=== PATIENT | male | born 1980 | race Caucasian/White ===

== ENCOUNTER → 2017-02-28 | Outpatient (POV) | payer BC, SELFPAY | PROVIDERS: Family Provider Orthopaedic Surgery; PCP Orthopaedic Surgery; Visit Provider Specialist | DX: G56.03 Carpal tunnel syndrome, bilateral upper limbs (principal) | CPT/HCPCS: 95886; 95910 ==

== ENCOUNTER → 2018-05-04 12:38 | Outpatient (CLI) | payer BC, SELFPAY ==
--- NOTE | 2018-05-04 12:47 | XR_ITS ---
XR knee LT 3V Ordering Physician: Liliana Burk Patient Age: 37 years: Male HISTORY: ITS.REASON: LT KNEE PAIN TECHNIQUE: 3 views left knee COMPARISON :. None FINDINGS Left knee intact. No fracture nor lesion Joint spaces fairly well-maintained.. Only borderline narrowing on this nonweightbearing film . Only Upper normal to scant increased joint fluid suprapatella bursa suggested on today's lateral film. No prominent joint effusion IMPRESSION: . Osseous structures left knee intact.. Upper normal slight increased joint fluid suprapatella bursa
== END ==
PROVIDERS: PCP Nurse Practitioner Family; Visit Provider Nurse Practitioner Family
DX: M25.562 Pain in left knee (principal); M25.462 Effusion, left knee
CPT/HCPCS: 73562

== ENCOUNTER → 2020-01-01 09:36 | Outpatient (CLI) | payer BC, SELFPAY ==
--- NOTE | 2020-01-01 09:42 | XR_ITS ---
PROCEDURE: XR KNEE RT 4V CLINICAL INDICATION: right knee pain COMPARISON: CR [id number] XR knee LT 3V from 05/04/2018 FINDINGS: No fracture or dislocation. No lytic or blastic change. There is normal mineralization. There is slight decrease in the joint space medially which could be due to early osteoarthritic change. Small well-circumscribed calcific density is present along the medial aspect of patella. Other findings:None. IMPRESSION: No acute finding. Slight decrease in the medial joint space which could be related to early osteoarthritic change. Dictated by: Atif Hastings MD 01/01/2020 13:57 Atif Hastings MD in [place] 01/01/2020 13:57
--- NOTE | 2020-01-01 09:42 | XR_ITS ---
PROCEDURE: XR KNEE LT 4V CLINICAL INDICATION: left knee pain COMPARISON: CR [id number] XR knee LT 3V from 05/04/2018 FINDINGS: No fracture or dislocation. No lytic or blastic change. There is normal mineralization. The joint spaces are well-preserved. No significant degenerative/arthritic changes. No erosive changes evident. Other findings:None. IMPRESSION: No acute findings. Dictated by: Atif Hastings MD 01/01/2020 14:01 Atif Hastings MD in [place] 01/01/2020 14:01
== END ==
PROVIDERS: PCP Nurse Practitioner Family; Visit Provider Orthopaedic Surgery
DX: M25.562 Pain in left knee (principal); M25.561 Pain in right knee
CPT/HCPCS: 73564

== ENCOUNTER → 2020-01-04 15:20 | Outpatient (CLI) | payer BC, SELFPAY ==
--- NOTE | 2020-01-04 15:20 | MR_ITS ---
PROCEDURE: MR KNEE LT WO CON CLINICAL INDICATION: evaluate for a meniscal tear Chronic left anterior knee pain COMPARISON: CR XR KNEE LT 4V from 01/01/2020 TECHNIQUE: Routine multiplanar multi echo sequences are performed without gadolinium enhancement. FINDINGS: The cruciate ligaments, collateral ligaments, patellar tendon, and quadriceps tendon are intact. No obvious meniscal tear. There is minimal nonspecific thinning of the patellar cartilage but with unremarkable signal intensity. Unremarkable bone marrow signal intensity. Trace amount of fluid in the suprapatellar region laterally. Unremarkable bone marrow signal intensity. IMPRESSION: 1. No internal derangement. 2. Minimal thinning of the patellar cartilage with trace amount of fluid in the lateral patellar region. Dictated by: Atif Hastings MD 01/06/2020 07:34 Atif Hastings MD in [place] 01/06/2020 07:34
== END ==
PROVIDERS: PCP Nurse Practitioner Family; Visit Provider Orthopaedic Surgery
DX: M25.562 Pain in left knee (principal)
CPT/HCPCS: 73721

== ENCOUNTER 2020-09-21 16:26 | Emergency (ER) | payer BC, SELFPAY ==
[2020-09-21 16:50] VITALS: BP 152/98; PULSE 81; RESP 20; TEMP 36.8; O2SAT 96; BMI 29.2
--- NOTE | 2020-09-21 17:36 | HMH.EDUTC ---
[facility] Disposition Clinical Impression: Tendonitis Disposition: Home, Self-Care Condition on Discharge: Good Instructions: Tendonitis (Alternative Therapy), DI for Tendinitis, Prednisone, Naproxen Additional Instructions: Wear brace as instructed *RICE, Rest the extremity, Ice 15-20 minutes 3-4 times daily,may alternate heat and ice to get relief, Elevate the extremity when at rest Take medications as prescribed Follow up with Family Doctor if no improvement or any worsening of symptoms Prescriptions: Naproxen [Naproxen 500mg tab] 500 mg PO BID PRN #20 tab PRN Reason: Moderate Pain Transmission Status: Received by [facility] predniSONE [Prednisone 5mg Tab Dose-Pack] 5 mg PO UD DOSE PK 6 Days #21 pack Transmission Status: Received by [facility] Referrals: Liliana Burk APRN [Primary Care Provider] - As needed Forms: Work/School Release Medical Decision Making - Rasta Inquiry Pt receiving controlled substance: No Rasta was queried for this patient: No Vital Signs: 09/21/20 16:50 09/21/20 17:50 Temperature 98.3 F 98.3 F Temperature Source Oral Pulse Rate 81 Pulse Rate [Right Brachial] 81 Respiratory Rate 20 20 Blood Pressure 152/98 H Blood Pressure [Right Arm] 152/98 H Blood Pressure Mean [Right Arm] 116 Blood Pressure Source [Right Arm] Automatic Cuff Blood Pressure Position [Right Arm] Sitting 02 Sat by Pulse Oximetry 96 Oxygen Delivery Method Room Air Orders (Tests/Meds): ED MEDICATIONS Discontinued Medications Generic Name Dose Route Start Last Admin Trade Name Freq PRN Reason Stop Dose Admin Ketorolac Tromethamine 60 mg 09/21/20 17:42 09/21/20 17:50 Ketorolac 60mg/2ml Vial IM 09/21/20 17:43 60 mg ONCE ONE Administration Methylprednisolone Sodium Succinate 125 mg 09/21/20 17:42 09/21/20 17:50 Methylprednisolone Sod Succ 125mg Vial IM 09/21/20 17:43 125 mg ONCE ONE Administration [facility] HPI - General Stated complaint: pain in R Wrist Time Seen by Provider: 09/21/20 17:36 Mode of Arrival: Ambulatory Source of Information: Patient Limitations: No Limitations Description of Symptoms (Recalled from Triage Doc. by RN): PATIENT C/O RIGHT WRIST PAIN. 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 States that a couple days ago at work he felt the tightness start and felt like it was getting stiff like he did last time States that he started wearing his brace hoping that would help but it didnt so he came in States that he usually gets some steriods and that helps - Related Data Home Medications Medication Instructions Recorded Confirmed lorazepam 1 mg tablet 1 mg PO Q8H PRN 03/30/17 01/16/20 ranitidine HCl 150 mg capsule 150 mg PO QHS 03/30/17 01/16/20 Previous Rx's Medication Instructions Recorded Naproxen [Naproxen 500mg tab] 500 mg PO BID PRN #20 tab 09/21/20 predniSONE [Prednisone 5mg Tab 5 mg PO UD DOSE PK 6 Days #21 pack 09/21/20 Dose-Pack] Allergies Allergy/AdvReac Type Severity Reaction Status Date / Time No Known Drug Allergies Allergy Unknown Verified 01/16/20 09:59 - Worker's Comp Is this a Worker's Comp case?: No [facility] History - Hepatitis A Screen Drug use history?: No High risk sexual behaviors?: No History of sexually transmitted infection?: No Currently employed?: No Childcare worker?: No Do you have indoor plumbing?: Yes Do you have electricity?: Yes Attestation statement:: This patient has been screened for Hepatitis A risk
[2020-09-21 17:50] VITALS: BP 152/98; PULSE 81; RESP 20; TEMP 36.8; O2SAT 96
== END 2020-09-21 18:00 | disposition home or self-care (01) ==
PROVIDERS: Emergency Provider Physician Assistant; PCP Nurse Practitioner Family
DX: M65.831 Other synovitis and tenosynovitis, right forearm (principal); F41.8 Other specified anxiety disorders
CPT/HCPCS: 96372; 99202; G0463

== ENCOUNTER 2020-12-23 13:13 | Emergency (ER) | payer BC, SELFPAY ==
[2020-12-23 13:17] VITALS: BP 136/84; PULSE 86; RESP 16; TEMP 36.4; O2SAT 98; BMI 29.8
--- NOTE | 2020-12-23 13:48 | HMH.EDUTC ---
[facility] Disposition Clinical Impression: Canker sore Pharyngitis Qualifiers: Pharyngitis/tonsillitis etiology: unspecified etiology Qualified Code(s): J02.9 - Acute pharyngitis, unspecified Disposition: Home, Self-Care Condition on Discharge: Good Instructions: Aphthous Ulcers, DI for Aphthous Ulcers (Canker Sores), DI for Wrist Pain, Thrush-Adult Additional Instructions: *Monitor Temp, Over the counter Motrin or Tylenol as directed/as needed Tylenol every 4 hours and Motrin every 6 hours (as long as your family doctor has told you that you can take it) for fever or pain. and straight to ER if unable to lower temp less than 101.0 after medication given *Warm salt water gargles may help to soothe the throat *Throat Lozenges *Warm fluids like tea with honey may help to soothe the throat *Sleep elevated *Humidifier/Vaporizer Milk of Magnesium placed on ulcers on tongue may help with pain and speed healing Swish and spit nystatin solutions as prescribed Follow up with your Family Doctor for further evaluation Follow up IMMEDIATELY for new or worsening symptoms or no Noticeable improvement over the next 48-72 hours. 911 for difficulty breathing or swallowing Prescriptions: Nystatin [Nystatin Susp 500,000 Units/5mL Udc] 6 ml PO QID 10 Days #240 ml Transmission Status: Received by [facility] Cefdinir [Omnicef 300mg Capsule] 300 mg PO BID #20 cap Transmission Status: Received by [facility] Referrals: Liliana Burk APRN [Primary Care Provider] - As needed Time of Disposition: 14:02 Medical Decision Making - Rasta Inquiry Pt receiving controlled substance: No Rasta was queried for this patient: No Vital Signs: 12/23/20 13:17 12/23/20 14:06 Temperature 97.6 F 97.6 F Temperature Source Oral Pulse Rate 86 Pulse Rate [Left] 86 Respiratory Rate 16 16 Blood Pressure 136/84 Blood Pressure [Right Arm] 136/84 Blood Pressure Mean [Right Arm] 101 02 Sat by Pulse Oximetry 98 Medical Decision Narrative: Discussed xray of wrist and patient declined states that he just wanted to see if we had a different splint for his wrist [facility] HPI - General Stated complaint: loss of appetite Time Seen by Provider: 12/23/20 13:48 Mode of Arrival: Ambulatory Source of Information: Patient Limitations: No Limitations Description of Symptoms (Recalled from Triage Doc. by RN): pt c/o not being able to eat. pt presents with what looks to be an ulcer on the R side of his tongue. pt states he has thrush frequently. pt also c/o chronic wrist pain. HEENT Symptoms (Recalled from RN notes): Yes (swollen painful tongue. with what appears to be an ulcer) Resp Symptoms (Recalled from RN notes): No Skin Symptoms (Recalled from RN notes): No MS Symptoms (Recalled from RN notes): Yes (chronic R wrist pain) Functional Status (Recalled from RN notes): na - History of Present Illness Provider Complaint: Patient states that he sometimes gets a ulcer like lesion on his tongue and has to get nystatin and antibiotics States that it has been getting worse for the last couple of days and has his throat sore and hurting States that also he has chronic pain in his right wrist from Carpal tunnel and he wanted to see about getting a new brace - Related Data Home Medications Medication Instructions Recorded Confirmed lorazepam 1 mg tablet 1 mg PO Q8H PRN 03/30/17 01/16/20 ranitidine HCl 150 mg capsule 150 mg PO QHS 03/30/17 01/16/20 Previous Rx's Medication Instructions Recorded Naproxen [Naproxen 500mg tab] 500 mg PO BID PRN #20 tab 09/21/20 predniSONE [Prednisone 5mg Tab 5 mg PO UD DOSE PK 6 Days #21 pack 09/21/20 Dose-Pack] Cefdinir [Omnicef 300mg Capsule] 300 mg PO BID #20 cap 12/23/20 Nystatin [Nystatin Susp 500,000 6 ml PO QID 10 Days #240 ml 12/23/20 Units/5mL Udc] Allergies Allergy/AdvReac Type Severity Reaction Status Date / Time No Known Drug Allergies Allergy Unknown Verified 01/16/20 09:59
[2020-12-23 14:06] VITALS: BP 136/84; PULSE 86; RESP 16; TEMP 36.4
== END 2020-12-23 14:08 | disposition home or self-care (01) ==
PROVIDERS: Emergency Provider Nurse Practitioner; PCP Nurse Practitioner Family
DX: K12.0 Recurrent oral aphthae (principal); J02.9 Acute pharyngitis, unspecified; F41.8 Other specified anxiety disorders; G56.01 Carpal tunnel syndrome, right upper limb
CPT/HCPCS: 29125; 99202; G0463

== ENCOUNTER → 2022-04-15 11:57 | Outpatient (CLI) | payer BC, SELFPAY | PROVIDERS: PCP Nurse Practitioner Family; Visit Provider Nurse Practitioner Family | DX: G47.33 Obstructive sleep apnea (adult) (pediatric) (principal); G47.00 Insomnia, unspecified; G47.8 Other sleep disorders; R06.83 Snoring | CPT/HCPCS: G0399 ==

== ENCOUNTER → 2022-05-13 08:21 | Outpatient (CLI) | payer BC, SELFPAY ==
--- NOTE | 2022-05-13 08:23 | US_ITS ---
FINAL REPORT TECHNIQUE: Sonographic images of the right upper quadrant were obtained. CLINICAL HISTORY: RUQ PAIN FINDINGS: Sonographic images of the right upper quadrant were obtained in the longitudinal and transverse planes. PANCREAS: Unremarkable. LIVER: The liver has increased echogenicity consistent mild fatty infiltration. No focal hepatic lesion. No intrahepatic biliary ductal dilatation. GALLBLADDER: There are several echogenic foci along the wall of the gallbladder that do not shadow and are most consistent with gallbladder polyps. No gallstones. No gallbladder wall thickening or pericholecystic fluid. COMMON DUCT: 4 mm. Normal for age. RIGHT KIDNEY: The right kidney measures 10.6 cm. There is no hydronephrosis, mass, or stone. FREE FLUID: None. IMPRESSION: 1. Gallbladder polyps. 2. Mild fatty infiltrated liver. Reviewed, Interpreted and Dictated by Genny Sky MD Transcribed by Kaye Porras Authenticated and [facility]
== END ==
PROVIDERS: PCP Nurse Practitioner Family; Visit Provider Nurse Practitioner Family
DX: R10.11 Right upper quadrant pain (principal)
CPT/HCPCS: 76705

== ENCOUNTER 2022-07-16 12:03 | Day surgery (SDC) | payer BC, SELFPAY ==
[2022-07-14 14:28] VITALS: BMI 29.8
[2022-07-16 12:17] VITALS: BP 128/84; PULSE 77; RESP 18; TEMP 36.3; O2SAT 96
--- NOTE | 2022-07-16 12:30 | EXP.ANES.CKL ---
[facility] Disclaimer: The information contained in this section may have been updated after the patient was seen, as this information can be updated by other users. Medical History Allergies Anxiety History of COVID-19 Ringing in ears Scoliosis Sleep apnea Surgical History Hx of carpal tunnel repair Family History Brother CHF (congestive heart failure) Social History Smoking Status: Current some day smoker tobacco type: cigarettes and smokeless tobacco alcohol intake: former counseling provided: other substance use type: denies use current occupational status: employed Travel in the last 8 weeks: None household members: children housing: house marital status: [facility] Anesthesia Checklist Patient Identification Patient Identification: Arm Band and Verbal (Name & ) Structural Data Admitted From: Home Planned Operative Procedure/s: EGD Consent for Planned Operative Procedure(s) Verified: Yes NPO Status Verified Time NPO: 00:00 Airway Assessment C-Spine Mobility Assessed: Yes TMJ Mobility Assessed: Yes Dentition: Good Dentition Neurological Assessment Level of Consciousness: Awake Hx Seizures: No Numbness or tingling in extremities: No Anesthesia Plan Anesthesia Risk discussed: Yes Anesthesia Plan: Verified ASA Class: II Anesthesia Type: MAC
[2022-07-16 13:22] VITALS: O2SAT 96
--- NOTE | 2022-07-16 13:41 | HMH.SCOPE ---
Procedure: Date: 07/16/22 Patient Date of :: 1980 Procedure Performed:: Esophagogastroduodenoscopy with biopsies Indications:: Patient is a 41-year-old from [place] originally referred by Fodr Prabhakar for gallbladder problems .? He was seen in the office on 06/15/2022. Patient states that he has lots of indigestion .? He states that this has been going on a good long while but seems to be worse since March or April of this year and subsequently he states I am done .? He has been in the past taking [id number] Tums and has been switched to omeprazole.? He subsequently has quit taking the omeprazole and is just taking a lot of Tums. He describes his symptoms as involving a wide constellation of symptoms consistent with waterbrash, substernal burning, associated nausea.? It seems to be sometimes worse when eating and sometimes not worse when eating.? He states I have had reflux my entire life. ? He states that he has come to believe that it is normal to vomit after every meal.? Patient does describe a significant gag reflex.? He states his symptoms are improved somewhat when he does not drink as much [place].? He has never had previous endoscopy.? He underwent gallbladder ultrasound on 05/13/2022 which revealed several echogenic foci along the wall of the gallbladder which do not shadow which are consistent with gallbladder polyps.? No gallbladder wall thickening or pericholecystic fluid.? He has findings consistent with mild fatty infiltrated liver. Although his gallbladder ultrasound reveals polyps and he may have some degree of gallbladder disease his symptoms seem to be more consistent with reflux and an upper GI etiology.? Therefore prior to proceeding with definite cholecystectomy I recommended upper endoscopy.? Performing Provider:: Jose Meier MD Referring Provider:: Sondra Prabhakar Sedation:: MAC sedation Procedure:: Patient history was obtained and appropriate physical examination was performed. Patient's medications and allergies were reviewed. Informed consent was obtained after explaining the benefits, alternatives, and risks of the procedure including, but not limited to, bleeding, perforation, missed lesions, and adverse reaction to anesthesia medications. Patient was transported to endoscopy procedure room. Patient was connected to monitoring devices. Throughout the procedure the patient's blood pressure, pulse, and oxygen saturations were monitored continuously. Patient identification and planned procedure were verified by the staff. Patient was positioned in lateral decubitus position. After adequate intravenous sedation Olympus endoscope was inserted via the oropharynx. Overall esophagus appeared unremarkable. Gastroesophageal junction was encountered at approximately 43 cm from the incisors. Stomach was cannulated and insufflated. Retroflexion revealed possible submucosal lesion at the gastric cardia. Endoscope was advanced through the pylorus. Within the duodenal bulb there were findings of some nonerosive duodenitis. Distal duodenum appeared unremarkable. Duodenal bulb biopsies were obtained. Biopsies were obtained of the gastric antrum. Endoscope was withdrawn into the distal esophagus. Multiple biopsies were obtained of the presumed lesion at the gastric cardia in the same location to hopefully obtain some submucosal tissue. Biopsies were obtained of the gastroesophageal junction and a couple of distal esophageal biopsies were obtained. Stomach was desufflated and the endoscope was withdrawn. Findings:: Gastroesophageal junction at 42 cm Probable submucosal lesion at the gastric cardia Mild gastropathy Nonerosive duodenitis within the bulb Recommendations:: I will follow-up on the histopathology and biopsies and proceed appropriately. If the biopsies of the possible submucosal lesion at the gastric cardia are inconclusive may require referral to gastroenterology for possible endos
[2022-07-16 13:42] VITALS: BP 111/71; PULSE 77; RESP 14; O2SAT 93
[2022-07-16 13:52] VITALS: BP 112/68; PULSE 62; RESP 14; O2SAT 98
--- NOTE | 2022-07-16 13:52 | EXP.GEN.HP ---
HPI HPI HPI: Patient is a 41-year-old from [place] originally referred by Fodr Prabhakar for gallbladder problems .? He was seen in the office on 06/15/2022.? Patient states that he has lots of indigestion .? He states that this has been going on a good long while but seems to be worse since March or April of this year and subsequently he states I am done .? He has been in the past taking [id number] Tums and has been switched to omeprazole.? He subsequently has quit taking the omeprazole and is just taking a lot of Tums.? He describes his symptoms as involving a wide constellation of symptoms consistent with waterbrash, substernal burning, associated nausea.? It seems to be sometimes worse when eating and sometimes not worse when eating.? He states I have had reflux my entire life. ? He states that he has come to believe that it is normal to vomit after every meal.? Patient does describe a significant gag reflex.? He states his symptoms are improved somewhat when he does not drink as much [place].? He has never had previous endoscopy.? He underwent gallbladder ultrasound on 05/13/2022 which revealed several echogenic foci along the wall of the gallbladder which do not shadow which are consistent with gallbladder polyps.? No gallbladder wall thickening or pericholecystic fluid.? He has findings consistent with mild fatty infiltrated liver.? Although his gallbladder ultrasound reveals polyps and he may have some degree of gallbladder disease his symptoms seem to be more consistent with reflux and an upper GI etiology.? Therefore prior to proceeding with definite cholecystectomy I recommended upper endoscopy.? [facility] Disclaimer: The information contained in this section may have been updated after the patient was seen, as this information can be updated by other users. Medical History Allergies Anxiety History of COVID-19 Ringing in ears Scoliosis Sleep apnea Surgical History Hx of carpal tunnel repair Family History Brother CHF (congestive heart failure) Social History Smoking Status: Current some day smoker tobacco type: cigarettes and smokeless tobacco alcohol intake: former counseling provided: other substance use type: denies use current occupational status: employed Travel in the last 8 weeks: None household members: children housing: house marital status: Meds Home Medications and Allergies Home Medications Medication Instructions Recorded Confirmed Type No Known Home Medications 07/14/22 07/14/22 History New Prescriptions to Start Prescriptions: Allergies Allergy/AdvReac Type Severity Reaction Status Date / Time No Known Drug Allergies Allergy Unknown Verified 07/14/22 14:29 Exam Data for Last 24 hours Vital signs and Labs for Last 24 Hours: Temp Pulse Resp BP Pulse Ox 97.3 F L 77 14 111/71 93 L 07/16/22 12:17 07/16/22 13:42 07/16/22 13:42 07/16/22 13:42 07/16/22 13:42 I & O for Last 24 hours: Intake & Output 07/14/22 07/15/22 07/16/22 07/17/22 11:59 11:59 11:59 11:59 Weight 219 lb 15.988 oz Constitutional Constitutional: no acute distress *Routine HEENT Exam Head: Present normocephalic Eye: Present EOMI and PERRL ENT: Present mucous membranes moist *Routine Neck Exam Neck: Present supple; Absent lymphadenopathy *Routine Respiratory Exam Respiratory: Present CTA bilaterally *Routine Cardiovascular Exam Cardiovascular: Present RRR *Routine Abdominal Exam Abdominal: Present soft and normoactive bowel sounds; Absent tenderness *Routine Rectal Exam Rectal:: deferred *Routine Genitalia Exam Genitalia:: deferred *Routine Extremities Exam Extremities: Absent cyanosis, clubbing or edema *Routine Skin E
[2022-07-16 14:02] VITALS: BP 105/66; PULSE 61; RESP 14; O2SAT 98
[2022-07-16 14:12] VITALS: BP 109/70; PULSE 83; RESP 16; O2SAT 98
== END 2022-07-16 14:12 | disposition home or self-care (01) ==
PROVIDERS: PCP Nurse Practitioner Family; Visit Provider Surgery
PROC: 0DJ08ZZ Inspection of Upper Intestinal Tract, Via Natural or Artificial Opening Endoscopic (ICD-10-PCS; CPT 43235; principal; 2022-07-16 13:30)
DX: K21.9 Gastro-esophageal reflux disease without esophagitis (principal); K29.80 Duodenitis without bleeding; Z72.0 Tobacco use
CPT/HCPCS: 43239

== ENCOUNTER → 2022-08-05 10:28 | Outpatient (CLI) | payer BC, SELFPAY ==
[2022-08-05 11:01] LABS: Basophils # 0.1 K/mm3 (0-0.2); Basophils % 0.8 % (0.1-2.0); Eosinophils # 0.4 K/mm3 (0.0-0.4); Eosinophils % 4.2 % (0.1-12.0); Hematocrit 51.9 % (42.0-52.0); Hemoglobin 17.4 g/dL (14.1-18.0); Lymphocytes # 2.5 K/mm3 (0.7-4.5); Lymphocytes % 30.4 % (10-50); Mean Corpuscular HGB Conc 33.5 g/dL (31.8-35.4); Mean Corpuscular Hemoglobin 31.2 pg (27.0-31.2); Mean Corpuscular Volume 93.1 fl (80-94); Mean Platelet Volume 8.4 fl (7.4-10.4); Monocytes # 0.4 K/mm3 (0.1-1.0); Monocytes % 4.4 % (1.7-9.3); Neutrophils % 60.1 % (37.0-80.0); Platelet Count 255 K/mm3 (142-424); Red Blood Count 5.57 M/mm3 (4.60-6.20); Red Cell Distribution Width 13.9 % (11.5-17.5); White Blood Count 8.3 K/mm3 (4.8-10.8)
[2022-08-05 11:13] LABS: INR 0.95 (0.9-1.1); Prothrombin Time 10.3 seconds (10.1-12.5)
[2022-08-05 11:28] LABS: Chloride 96 mmol/L (98-107)
[2022-08-05 11:29] LABS: Potassium 4.7 mmoL/L (3.5-5.1); Sodium 140 mmol/L (136-145)
[2022-08-05 11:31] LABS: Alanine Aminotransferase 32 U/L (12-78); Alkaline Phosphatase 128 U/L (38-126); Amylase 90 U/L (30-110); Anion Gap 16.7 mEq/L (5-15); Aspartate Amino Transferase 29 U/L (17-59); Bilirubin,Total 0.3 mg/dl (0.2-1.3); Blood Urea Nitrogen 6 mg/dl (9-20); Carbon Dioxide 32 mmol/L (22.0-30.0); Estimated Glomerular Filt Rate 92 ml/min (>60); GFR (African American) 111 ML/MIN (>60)
[2022-08-05 11:32] LABS: Albumin Level 4.4 g/dl (3.5-5.0); Albumin/Globulin Ratio 1.5 (1.1-1.8); Calcium 9.5 mg/dl (8.4-10.2); Glucose 133 mg/dl (74-100); Lipase 425 U/L (23-300); Total Protein,Serum 7.4 g/dl (6.3-8.2)
--- NOTE | 2022-08-05 12:39 | CT_ITS ---
FINAL REPORT TECHNIQUE: Oral and IV contrast enhanced exam obtained of the abdomen and pelvis. This study was performed with techniques to keep radiation doses as low as reasonably achievable, (ALARA). Individualized dose reduction techniques using automated exposure control or adjustment of mA and/or kV according to the patient's size were employed. CLINICAL HISTORY: epigastric abd pain, nausea, vomiting COMPARISON: None FINDINGS: Abdomen: No acute density is seen within the lung bases. The gallbladder is unremarkable. Solid abdominal organs are unremarkable. No bowel obstruction is present. There is no free air. No fluid collection is seen. There is no adenopathy. Tiny bilateral inguinal hernias containing fat. Pelvis: The appendix is normal. No bowel wall thickening is present. There is no free fluid. No pelvic mass is seen. IMPRESSION: Unremarkable exam Reviewed, Interpreted and Dictated by Pete Gonzalez MD Transcribed by Stefania Park Authenticated and [facility]
== END ==
PROVIDERS: PCP Nurse Practitioner Family; Visit Provider Surgery
DX: R10.9 Unspecified abdominal pain (principal)
CPT/HCPCS: 36415; 74177; 80053; 82150; 83690; 85025; 85610; Q9967

== ENCOUNTER 2022-11-05 19:17 | Emergency (ER) | payer BC, SELFPAY ==
[2022-11-05 19:25] VITALS: BP 149/90; PULSE 77; RESP 20; TEMP 36.6; O2SAT 95; BMI 29.8
[2022-11-05 20:06] VITALS: BP 149/90; PULSE 77; RESP 20; TEMP 36.6; O2SAT 95
--- NOTE | 2022-11-05 20:06 | EXP.UTC ---
Discharge Plan Disposition Patient Disposition: Home, Self-Care Condition: Good Prescriptions Prescriptions: New mupirocin 2 % ointment 1 applic topical TID Qty: 22 0RF No Action pantoprazole 40 mg tablet,delayed release (DR/EC) 40 mg PO DAILY buspirone 10 mg tablet 10 mg PO DAILY hydroxyzine HCl 25 mg tablet 25 mg PO DAILY Referrals Follow up/Referrals: Ford Prabhakar APRN [Primary Care Provider] - See instructions Clinical Impressions Clinical Impression: Bites and stings, insect Qualifiers: Encounter type: initial encounter Qualified Code(s): W57.XXXA - Bitten or stung by nonvenomous insect and other nonvenomous arthropods, initial encounter Instructions Patient Instructions: How to Care for an Insect Bite or Sting, DI for Insect Bites and Stings Discharge ED Provider: Amelie Abreu [facility] [place] HPI General Stated complaint: Bite/sting on right thigh Mode of Arrival: Ambulatory Source of Information: Patient Limitations: No Limitations Time Seen by Provider: 11/05/22 20:00 Description of Symptoms (Recalled from Triage Doc. by RN): PATIENT C/O STING TO TOP OF RIGHT LEG SINCE TUESDAY HEENT Symptoms (Recalled from RN notes): No Resp Symptoms (Recalled from RN notes): No Skin Symptoms (Recalled from RN notes): Yes MS Symptoms (Recalled from RN notes): No Functional Status (Recalled from RN notes): WNL History of Present Illness Provider Complaint: Pt relates that he was working in his building and felt something sting him on the right upper thigh on Tuesday. He states that a wasp was flying around and chased him out of the building. He reports that the site has a yellow top over the area now and is sore. Related Data Home Medications Medication Instructions Recorded Confirmed buspirone 10 mg tablet 10 mg PO DAILY . 11/05/22 11/05/22 hydroxyzine HCl 25 mg tablet 25 mg PO DAILY . 11/05/22 11/05/22 pantoprazole 40 mg tablet,delayed 40 mg PO DAILY GERD 11/05/22 11/05/22 release Previous Rx's Medication Instructions Recorded mupirocin 2 % topical ointment 1 applic topical TID #22 grams 11/05/22 Allergies Allergy/AdvReac Type Severity Reaction Status Date / Time No Known Drug Allergies Allergy Unknown Verified 08/05/22 10:13 Worker's Comp Is this a Worker's Comp case?: No [facility] Disclaimer: The information contained in this section may have been updated after the patient was seen, as this information can be updated by other users. Medical History (Updated 11/05/22 @ 20:09 by Amelie Abreu APRN) Allergies Anxiety History of COVID-19 Ringing in ears Scoliosis Sleep apnea Surgical History (Updated 08/05/22 @ 10:15 by BRIDGET Ellis) History of esophagogastroduodenoscopy (EGD) Hx of carpal tunnel repair Family History Brother CHF (congestive heart failure) Social History Smoking Status: Current some day smoker tobacco type: cigarettes and smokeless tobacco alcohol intake: former counseling provided: other substance use type: denies use current occupational status: employed Travel in the last 8 weeks: None household members: children housing: house marital status: ROS Obtained: Yes All systems reviewed & no additional complaints except as documented Constitutional Constitutional: Reports system reviewed and no additional complaints, except as documented Eyes Eyes: Reports system reviewed and no additional complaints, except as documented ENT Ears, Nose, Mouth, and Throat: Reports system reviewed and no additional complaints, except as documented Cardiovascular Cardiovascular: Reports system reviewed and no additional complaints, except as documented Respiratory Respiratory: Reports system reviewed and no additional complaints, except as documented Gastrointestinal Gastrointestin
== END 2022-11-05 20:13 | disposition home or self-care (01) ==
PROVIDERS: Emergency Provider Nurse Practitioner Family; PCP Nurse Practitioner Family
DX: S70.361A Insect bite (nonvenomous), right thigh, initial encounter (principal); F17.210 Nicotine dependence, cigarettes, uncomplicated; J30.9 Allergic rhinitis, unspecified; F41.9 Anxiety disorder, unspecified; W57.XXXA Bitten or stung by nonvenomous insect and other nonvenomous arthropods, initial encounter
CPT/HCPCS: 99212; 99214; G0463

== ENCOUNTER 2025-01-31 17:14 | Outpatient (CLI) | payer BC, SELFPAY ==
--- OUTSIDE RECORDS SUMMARY | 2025-01-31 17:17 | XMS_ITS | Data Portability ---
Author Organization Formerly [facility] Address [address] [place] [address] Assessment No assessment recorded. Plan of Treatment Reminders Order Date Submit Date Provider Last Modified By Organization Details Last Modified Time Details Appointments SAME Day 2024 03:40P M Ford Prabhakar APRN Not available Not available Not available Nurse Visit 2024 09:00A M Nurse-Sonido strange Not available Not available Not available Lab Mycobacte rium tuberculo sis stimulate d gamma interfero n, qual, blood 2024 025 [facility], [address], [place] [address], [place], [address], 01/31/2025 16:18:21 CBC w/ auto diff 2024 025 [facility], [address], [address], [place], [address], 01/31/2025 16:18:19 PT/PTT, plasma 2024 025 [facility], [address], [address], [place], [address], 01/31/2025 16:18:20 D-dimer, quant, plasma 2024 025 [facility], [address], [address] [address], [place], [address], 01/31/2025 16:18:19 testoster one, free + total, serum 2024 [facility], [address], [place] [address], [place], [address], 01/31/2025 16:18:20 TSH + free T4, serum 2024 [facility], [address], [address] [address], [place], [address], 01/31/2025 16:18:20 drug screen, urine 2024 [facility], [address], [place], [address], 01/21/2025 14:18:12 drug screen, 14 drugs (detectim ed), urine 2024 [facility], [address], [address], [place], [address], 08/07/2024 14:14:15 Referral orthopedi c surgeon referral [address], [address] [place] [address] [address], [place], [address], 01/31/2025 16:30:15 Procedures None recorded. Surgeries None recorded. Imaging XR, chest, 2 view [address] (X-Ray), [address] [place] [address] [address], [place], [address], 01/31/2025 16:30:15 Medication Orders pantopraz ole 40 mg tablet,de layed release 2024 [facility], [address] [place], [address], 01/21/2025 14:09:54 simvastat in 20 mg tablet 2024 [facility], [address] [place], [address], 01/21/2025 14:09:56 clonazepa m 0.5 mg tablet 2024 [facility], [address] [facility] [place], [address], 01/21/2025 14:09:57 desvenlaf axine succinate ER 50 mg tablet,ex tended release 24 hr 2024 [facility], [address] [facility] [place], [address], 01/21/2025 14:09:55 aripipraz ole 5 mg tablet 2024 [facility], [address] [place], [address], 01/21/2025 14:09:54 clonazepa m 0.5 mg tablet 2024 [facility], [address] [place], [address], 07/30/2024 13:49:17 aripipraz ole 5 mg tablet 2024 [facility], [address] [place], [address], 07/30/2024 13:49:16 prednison e 20 mg tablet 2023 024 [facility], [address] [facility] [place], [address], 07/30/2024 13:15:41 amoxicill in 500 mg tablet 2023 024 [facility], [address] [place], [address], 07/30/2024 13:15:00 pantopraz ole 40 mg tablet,de layed release 2023 024 [facility], [address], [address], 12/08/2023 15:07:00 aripipraz ole 5 mg tablet 2023 024 [facility], [address], [address], 12/08/2023 15:07:01 desvenlaf axine succinate ER 50 mg tablet,ex tended release 24 hr 2023 024 [facility], [address], [address], 12/08/2023 15:06:58 Klonopin 0.5 mg tablet 2023 024 [facility], [address], [address], 12/08/2023 15:07:02 Patient TargetsNo targets recorded. Patient Instructions Encounter Date Encounter Id Patient Instructions Last Modified By Organization Details Last Modified Time 01/21/2025 [id number] learning about healthy weight efryman Not available 01/21/2025 14:09:47 body mass index: care instructions efryman Not available 01/21/2025 14:09:46 Reason for Referral Orthopedic Surgeon Referral for Ganglion cyst of right wrist Referring Physician: Ford Prabhakar, Family Medicine, Encounter Date: 01/31/2025 Results Created Date Observation Date Name Description Value Unit Range Abnormal Flag Note LastModifiedBy Organization Detail LastModifiedTime 11/07/1911/08/2023 CBC WITH DIFFE RENTI AL/PL ATELE T WBC 9.2 x10e3 /uL 3.4-10 .8 normal Not Available [facility] ([facility]) [address] [facility], [place], [address], 11/08/2023 17:06:48 11/07/19 24 11/08/2023 CBC WITH DIFFE RENTI AL/PL ATELE T RBC 5.77 x10e6 /uL 4.14-5 .80 normal Not Available [facility] ([facility]) [address] [place], [address], 11/08/2023 17:06:48 11/07/19 24 11/08/2023 CBC WITH DIFFE RENTI AL/PL ATELE T hemoglobin 17.9 g/dL 13.0-1 7.7 above high normal Not Available [facility] ([facility]) [address] [place], [address], 11/08/2023 17:06:48 11/07/1911/08/2023 CBC WITH DIFFE RENTI AL/PL ATELE T hematocrit 53.4 % 37.5-5 1.0 above high normal Not Available [facility] ([facility]) [address] [place], [address], 11/08/2023 17:06:48 11/07/19 24 11/08/2023 CBC WITH DIFFE RENTI AL/PL ATELE T MCV 93 fL 79-97 normal Not Available [facility] ([facility]) [address] [place], [address], 11/08/2023 17:06:48 11/07/19 24 11/08/2023 CBC WITH DIFFE RENTI AL/PL ATELE T MCH 31.0 pg 26.6-3 3.0 normal Not Available [facility] ([facility]) [address] [place], [address], 11/08/2023 17:06:48 11/07/19 24 11/08/2023 CBC WITH DIFFE RENTI AL/PL ATELE T MCHC 33.5 g/dL 31.5-3 5.7 normal Not Available [facility] ([facility]) [address] [place], [address], 11/08/2023 17:06:48 11/07/19 24 11/08/2023 CBC WITH DIFFE RENTI AL/PL ATELE T RDW 13.9 % 11.6-1 5.4 Not Available [facility] ([facility]) [address] [facility], [place], [address], 11/08/2023 17:06:48 11/07/19 24 11/08/2023 CBC WITH DIFFE RENTI AL/PL ATELE T platelets 239 x10e3 /uL 150-45 0 normal Not Available [facility] ([facility]) [address] [facility], [place], [address], 11/08/2023 17:06:48 11/07/19 24 11/08/2023 CBC WITH DIFFE RENTI AL/PL ATELE T neutrophils 64 % not estab. normal Not Available [facility] ([facility]) [address] [facility], [place], [address], 11/08/2023 17:06:48 11/07/19 24 11/08/2023 CBC WITH DIFFE RENTI AL/PL ATELE T lymphs 26 % not estab. normal Not Available [facility] ([facility]) [address] [facility], [place], [address], 11/08/2023 17:06:48 11/07/19 24 11/08/2023 CBC WITH DIFFE RENTI AL/PL ATELE T monocytes 6 % not estab. normal Not Available [facility] ([facility]) [address] [facility], [place], [address], 11/08/2023 17:06:48 11/07/19 24 11/08/2023 CBC WITH DIFFE RENTI AL/PL ATELE T eos 3 % not estab. normal Not Available [facility] ([facility]) [address] [facility], [place], [address], 11/08/2023 17:06:48 11/07/19 24 11/08/2023 CBC WITH DIFFE RENTI AL/PL ATELE T basos 1 % not estab. normal Not Available [facility] ([facility]) [address] [facility], [place], [address], 11/08/2023 17:06:48 11/07/19 24 11/08/2023 CBC WITH DIFFE RENTI AL/PL ATELE T immature cells LINOLEUM FLOOR INSTALLER Not Available [facility] ([facility]) [address] [facility], [place], [address], 11/08/2023 17:06:48 11/07/19 24 11/08/2023 CBC WITH DIFFE RENTI AL/PL ATELE T neutrophils (absolute) 6.0 x10e3 /uL 1.4-7. 0 normal Not Available [facility] ([facility]) [address] [facility], [place], [address], 11/08/2023 17:06:48 11/07/19 24 11/08/2023 CBC WITH DIFFE RENTI AL/PL ATELE T lymphs (absolute) 2.4 x10e3 /uL 0.7-3. 1 normal Not Available [facility] ([facility]) [address] [facility], [place], [address], 11/08/2023 17:06:48 11/07/19 24 11/08/2023 CBC WITH DIFFE RENTI AL/PL ATELE T monocytes(ab solute) 0.5 x10e3 /uL 0.1-0. 9 normal Not Available [facility] ([facility]) [address] [facility], [place], [address], 11/08/2023 17:06:48 11/07/19 24 11/08/2023 CBC WITH DIFFE RENTI AL/PL ATELE T eos (absolute) 0.2 x10e3 /uL 0.0-0. 4 normal Not Available [facility] ([facility]) [address] [place], [address], 11/08/2023 17:06:48 11/07/19 24 11/08/2023 CBC WITH DIFFE RENTI AL/PL ATELE T baso (absolute) 0.1 x10e3 /uL 0.0-0. 2 normal Not Available [facility] ([facility]) [address] [facility], [place], [address], 11/08/2023 17:06:48 11/07/19 24 11/08/2023 CBC WITH DIFFE RENTI AL/PL ATELE T immature granulocytes 0 % not estab. Not Available [facility] ([facility]) [address] [facility], [place], [address], 11/08/2023 17:06:48 11/07/19 24 11/08/2023 CBC WITH DIFFE RENTI AL/PL ATELE T immature grans (abs) 0.0 x10e3 /uL 0.0-0. 1 Not Available [facility] ([facility]) [address] [facility], [place], [address], 11/08/2023 17:06:48 11/07/19 24 11/08/2023 CBC WITH DIFFE RENTI AL/PL ATELE T NRBC LINOLEUM FLOOR INSTALLER Not Available [facility] ([facility]) [address] [facility], [place], [address], 11/08/2023 17:06:48 11/07/19 24 11/08/2023 CBC WITH DIFFE RENTI AL/PL ATELE T hematology comments: LINOLEUM FLOOR INSTALLER Not Available [facility] ([facility]) [address] [facility], [place], [address], 11/08/2023 17:06:48 07/31/19 25 08/07/2024 COMPL IANCE DRUG PATRICE SIS, UR summary report (summary) FINAL ===== ===== ===== ===== ===== ===== ===== ===== ===== ===== ===== ===== ===== === TOXAS SURE COMP DRUG PATRICE SIS,U R ===== ===== ===== ===== ===== ===== ===== ===== ===== ===== ===== ===== ===== === Test Resul t Flag Units Drug Prese nt 7-ami noclo nazep am 26 ng/mg creat 7-ami noclo nazep am is an expec [place] metab olite of clona zepam . Sourc e of clona zepam is a sched uled presc ripti on medic ation . Desme thylv enlaf axine PRESE NT Desme thylv enlaf axine may be prese nt due to admin istra tion of desve nlafa xine; it is also an expec [place] metab olite of venla faxin e. Aripi prazo le PRESE NT ===== ===== ===== ===== ===== ===== ===== ===== ===== ===== ===== ===== ===== === Test Resul t Flag Units Ref Range Creat inine 86 mg/dL >=20 ===== ===== ===== ===== ===== ===== ===== ===== ===== ===== ===== ===== ===== === Decla red Medic ation s: Medic ation list was not provi ded. ===== ===== ===== ===== ===== ===== ===== ===== ===== ===== ===== ===== ===== === For clini paola consu ltati on, pleas e call . ===== ===== ===== ===== ===== ===== ===== ===== ===== ===== ===== ===== ===== === Not Available [facility] ([facility]) [address] [facility], [place], [address], 08/07/2024 14:14:15 07/31/1908/07/2024 COMPL IANCE DRUG PATRICE SIS, UR pdf . Not Available [facility] ([facility]) [address] [facility], [place], [address], 08/07/2024 14:14:15 01/22/2001/21/2025 drug scree n, urine AMP negati ve Not Available [address], [address], 01/21/2025 13:56:50 01/22/2001/21/2025 drug scree n, urine BAR negati ve Not Available [address], [address], 01/21/2025 13:56:50 01/22/2001/21/2025 drug scree n, urine BUP negati ve Not Available [address], [address], 01/21/2025 13:56:50 01/22/2001/21/2025 drug scree n, urine BZO negati ve Not Available [address], [address], 01/21/2025 13:56:50 01/22/2001/21/2025 drug scree n, urine ELLIOTT negati ve Not Available [address], [address], 01/21/2025 13:56:50 01/22/2001/21/2025 drug scree n, urine FTY negati ve Not Available [address], [address], 01/21/2025 13:56:50 01/22/2001/21/2025 drug scree n, urine MDMA negati ve Not Available [address], [address], 01/21/2025 13:56:50 01/22/2001/21/2025 drug scree n, urine MET negati ve Not Available [address], [address], 01/21/2025 13:56:50 01/22/2001/21/2025 drug scree n, urine MOP negati ve Not Available [address], [address], 01/21/2025 13:56:50 01/22/2001/21/2025 drug scree n, urine MTD negati ve Not Available [address], [address], 01/21/2025 13:56:50 01/22/2001/21/2025 drug scree n, urine OXY negati ve Not Available [address], [address], 01/21/2025 13:56:50 01/22/2001/21/2025 drug scree n, urine PCP negati ve Not Available [address], [address], 01/21/2025 13:56:50 01/22/2001/21/2025 drug scree n, urine TCA negati ve Not Available [address], [place], [address], 01/21/2025 13:56:50 01/22/2001/21/2025 drug scree n, urine THC negati ve Not Available [address], [place], [address], 01/21/2025 13:56:50 Result Notes None recorded. Problems Name Problem SNOMED Code Status Onset Date Resolution Date Notes Provider Name and Address Organization Details Recorded Time Anxiety 49112004 Active 2022 Ford Prabhakar, CONSULTING SERVICES MANAGER [address], [place], [address], [place] - [facility] 3 14:45:48 Epigastric pain 20303688 Active 2022 Linus Us, CONSULTING SERVICES MANAGER [address], [place], [address], [place] - [facility] 3 15:34:51 Gastroesophage al reflux disease 828405199 Active 2022 Ford Prabhakar, CONSULTING SERVICES MANAGER [address], [place], [address], [place] - [facility] 3 14:45:56 Unintentional weight loss 394894717 Active 2022 Linus Us, CONSULTING SERVICES MANAGER [address], [place], [address], [place] - [facility] 3 15:44:19 Sleep apnea 90628835 Active 2023 Ford Prabhakar, CONSULTING SERVICES MANAGER [address], [place], [address], [place] - [facility] 4 14:54:05 Problem Notes None recorded. Procedures Surgical History Date Name Laterality Status Provider Name and Address Organization Details Recorded Time Carpal tunnel surgery completed Annabel Stears [place] - [facility] 05/10/2022 09:57:58 Vasectomy completed Annabel Stears [place] - [facility] 05/10/2022 09:58:05 Imaging Results None recorded. Procedure Notes None recorded. Medical Equipment None Reported. Allergies No known drug allergies Medications Name Sig Start Date Stop Date Status Note LastModified by Organization Details LastModified Time blood pressu solution kit active Not Available Not Available Not Available amoxicill in 500 mg capsule TAKE 1 CAPSULE BY MOUTH TWICE DAILY FOR 10 DAYS 07/30 completed Not Available Not Available Not Available albuterol sulfate 2.5 mg/3 mL (0.083 %) solution for nebulizat ion Inhale 3 mL 3 times a day by nebuliza tion route as needed, for soa/whee zing. 2023 active Not Available Not Available Not Avai lable azithromy debora 250 mg tablet TAKE 2 TABLETS (500 MG) BY ORAL ROUTE ONCE DAILY FOR 1 DAY THEN 1 TABLET (250 MG) BY ORAL ROUTE ONCE DAILY FOR 4 DAYS 05/10 completed Not Available Not Available Not Available ranitidin e 300 mg tablet 04/20 completed Not Available Not Available Not Available hydrocodo ne 5 mg-acetam inophen 325 mg tablet 04/20 completed Not Available Not Available Not Available Paxil 20 mg tablet take 1 tablet (20 mg) by oral route once daily for 30 days 11/20 completed Paxil 20 mg oral tablet;R ecorded Status: Recorded on: 03/25/20 10 4:49PM;D iscontin ued Status: Disconti nued on: 11/21/19 11 11:22AM; User: [email or web address] Bhatia on: 06/24/19 11 Not Available Not Available Not Available prednison e 20 mg tablet Take 1 tablet twice a day by oral route for 5 days. 07/30 completed Not Available Not Available Not Available clonazepa m 0.5 mg tablet TAKE 1 TABLET BY MOUTH ONCE DAILY FOR 20 DAYS active Not Available Not Available No t Available Paxil 40 mg tablet take 1 tablet (40 mg) by oral route once daily 03/24 completed Paxil 40 mg oral tablet;R ecorded Status: Recorded on: 03/14/20 09 2:16PM;D iscontin ued Status: Disconti nued on: 03/24/20 09 10:22AM; User: [email or web address] Not Available Not Available Not Available amoxicill in 500 mg tablet Take 1 tablet twice a day by oral route for 10 days. 07/30 completed Not Available Not Available Not Available prednison e 10 mg tablets in a dose pack 04/20 completed Not Available Not Available Not Available pantopraz ole 40 mg tablet,de layed release Take 1 tablet every day by oral route for 30 days. 2024 active Not Available Not Available Not Avai lable simvastat in 20 mg tablet TAKE 1 TABLET BY MOUTH ONCE DAILY AT BEDTIME active Not Available Not Available No t Available buspirone 10 mg tablet Take 1 tablet twice a day by oral route for 30 days. 07/13 completed Not Available Not Available Not Available promethaz ine 25 mg tablet 04/20 completed Not Available Not Available Not Available omeprazol e 20 mg capsule,d elayed release Take 1 capsule every day by oral route. 10/21 completed Not Available Not Available Not Available diclofena c sodium 75 mg tablet,de layed release 04/20 completed Not Available Not Available Not Available hydroxyzi ne HCl 25 mg tablet Take 1 tablet 3 times a day by oral route as needed for 30 days. 07/13 completed Not Available Not Available Not Available mupirocin 2 % topical ointment 04/12 completed Not Available Not Available Not Available perphenaz ine-amitr iptyline 2 mg-25 mg tablet take 1 tablet by oral route 2 times per day 11/20 completed perphena zine-ami triptyli ne 2-25 mg oral tablet;R ecorded Status: Recorded on: 05/04/19 11 4:48PM;D iscontin ued Status: Disconti nued on: 11/21/19 11 11:22AM; User: [email or web address];Juan russellicatio n: Anxiety with Depressi on - () Not Available Not Available Not Available lorazepam 1 mg tablet 04/20 completed Not Available Not Available Not Available Ativan 0.5 mg tablet Take 2 tablets 3 times a day by oral route. 07/13 completed Taking an old script at this time Not Available Not Available Not Available methylpre dnisolone 4 mg tablets in a dose pack 01/24 /2023 completed Not Available Not Available Not Available albuterol sulfate HFA 90 mcg/actua tion aerosol inhaler INHALE 1 PUFF BY MOUTH EVERY 4 HOURS NEEDED active Not Available Not Available No t Available SSD 1 % topical cream APPLY A 1/16 INCH (1.5 MM) THICK LAYER TO ENTIRE BURN AREA BY TOPICALR OUTE 2 TIMES PER DAY 04/12 completed Not Available Not Available Not Available Klonopin 1 mg tablet take 1 tablet (1 mg) by oral route 2 times per day for 30 days 09/19 completed Klonopin 1 mg oral tablet;R ecorded Status: Recorded on: 07/23/19 11 9:29AM;D iscontin ued Status: Disconti nued on: 09/20/19 14 3:17PM;U ser: [email or web address] la;Est. Completi on: 10/21/19 11 Not Available Not Available Not Available fluticaso ne propionat e 50 mcg/actua tion nasal spray,bing pension Coffey 1 spray every day by intranas al route. 04/12 completed Not Available Not Available Not Available amoxicill in 875 mg-potass ium clavulana te 125 mg tablet 04/12 completed Not Available Not Available Not Available aripipraz ole 5 mg tablet Take 1 tablet by mouth once daily for 30 days 2024 active Not Available Not Available Not Avai lable Cymbalta 30 mg capsule,d elayed release 1 po qd 11/20 completed Cymbalta 30 mg oral capsule, delayed release( DR/EC);R ecorded Status: Recorded on: 12/24/19 10 4:19PM;D iscontin ued Status: Disconti nued on: 11/21/19 11 11:22AM; User: [email or web address] Not Available Not Available Not Available sildenafi l (pulmonar y hypertens ion) 20 mg tablet TAKE 3 TABLETS (60 MG) BY MOUTH ONCE DAILY NEEDED 1 HOUR BEFORE SEX (MAX 3 TABLETS/ DAY) 04/20 completed Not Available Not Available Not Available Effexor 1 qd x 2wk then bid 09/19 completed effexor 75mg;Rec orded Status: Recorded on: 11/21/19 11 11:35AM; Disconti nued Status: Disconti nued on: 09/20/19 14 3:17PM;U ser: [email or web address] la;Est. Completi on: 12/21/19 11;Indic ation: - (-5) Not Available Not Available Not Available Ativan 1 bid 02/07 completed ativan 1 mg;Recor ded Status: Recorded on: 01/09/20 15 10:04AM; User: opal la;Est. Completi on: 02/08/20 15;Indic ation: - (-5) Not Available Not Available Not Available Keflex 1 bid 07/22 completed keflex 500mg;Re corded Status: Recorded on: 06/02/19 11 3:14PM;D iscontin ued Status: Disconti nued on: 07/23/19 11 9:01AM;U ser: opal la;Est. Completi on: 06/16/19 11;Indic ation: - (-5) Not Available Not Available Not Available aripipraz ole 2 mg tablet TAKE 1 TABLET BY MOUTH ONCE DAILY 11/06 completed Not Available Not Available Not Available desvenlaf axine succinate ER 50 mg tablet,ex tended release 24 hr Take 1 tablet by mouth once daily for 30 days 2024 active Not Available Not Available Not Avai lable Triavil 1 bid 05/04 completed triavil 2 -25;Spencer rded Status: Recorded on: 04/27/19 11 11:00AM; Disconti nued Status: Disconti nued on: 05/04/19 11 4:48PM;U ser: opal la;Est. Completi on: 06/27/19 11;Indic ation: - (-5) Not Available Not Available Not Available desvenlaf axine succinate ER 25 mg tablet,ex tended release 24 hr TAKE 1 TABLET BY MOUTH ONCE DAILY 11/06 completed Not Available Not Available Not Available Vitals Date Recorded Body height Body mass index (BMI) Body weight Heart rate Oxygen saturation Oxygen saturation in Arterial blood by Pulse oximetry Respiratory rate Pain severity - 0-10 verbal numeric rating [Score] - Reported Systolic And Diastolic Provider Name and Address Organization Details Last Updated DateTime 5 180.34 cm 32.4 kg/m2 582980. 43 g 78 /min 96 % 96 % 18 /min 0 136/80 mm[Hg] Marilee Calvilloler [place] - [facility] 5 13:14:44 Date Recorded Body height Body mass index (BMI) Body weight Body temperature Heart rate Oxygen saturation Oxygen saturation in Arterial blood by Pulse oximetry Respiratory rate Pain severity - 0-10 verbal numeric rating [Score] - Reported Systolic And Diastolic Provider Name and Address Organization Details Last Updated DateTime 4 180.34 cm 31.9 kg/m2 517356. 65 g 97.7 [degF] 79 /min 97 % 97 % 20 /min 0 138/80 mm[Hg] Marilee Xochitl MD - [facility] 4 14:33:58 Date Recorded Body height Body mass index (BMI) Body weight Respiratory rate Heart rate Body temperature Oxygen saturation Oxygen saturation in Arterial blood by Pulse oximetry Systolic And Diastolic Provider Name and Address Organization Details Last Updated DateTime 5 180.34 cm 31.4 kg/m2 623913. 28 g 18 /min 78 /min 98 [degF] 97 % 97 % 142/78 mm[Hg] Annabelmel Garcias MD - [facility] 5 13:37:43 Date Recorded Body height Body mass index (BMI) Body weight Body temperature Respiratory rate Heart rate Oxygen saturation Oxygen saturation in Arterial blood by Pulse oximetry Systolic And Diastolic Provider Name and Address Organization Details Last Updated DateTime 5 180.34 cm 31.4 kg/m2 547965. 28 g 97.9 [degF] 18 /min 82 /min 97 % 97 % 136/78 mm[Hg] Annabelmel Garcias [place] - [facility] 5 15:48:35 Date Recorded Body height Body mass index (BMI) Body weight Body temperature Heart rate Oxygen saturation Oxygen saturation in Arterial blood by Pulse oximetry Respiratory rate Systolic And Diastolic Provider Name and Address Organization Details Last Updated DateTime 4 180.34 cm 33.1 kg/m2 813989. 39 g 97.8 [degF] 74 /min 96 % 96 % 18 /min 118/76 mm[Hg] Annabel Stears [place] - [facility] 14:10:44 Social History Question Answer Notes LastModified by Organizat ion Details LastModified Time Tobacco Smoking Status Current Every Day Smoker Marilee Leung null, [place] - [facility] 10/21/2022 15:15:02 Do You Have An Advance Directive? No Information n ot available 04/20/2022 Are You Blind Or Do You Have Difficulty Seeing? No Information n ot available 04/20/2022 What Is Your Level Of Caffeine Consumption? Moderate Information not available 10/21/2022 In The 14 Days Before Symptom Onset, Have You Had Close Contact With A Laboratory-confirm ed COVID-19 While That Case Was Ill? No Information n ot available 10/21/2022 In The 14 Days Before Symptom Onset, Have You Had Close Contact With A Person Who Is Under Investigation For COVID-19 While That Person Was Ill? No Information not available 10/21/2022 Have You Been To An Area Known To Be High Risk For COVID-19? No Information not available 10/21/2022 Are You Deaf Or Do You Have Serious Difficulty Hearing? No Information not available 04/20/2022 What Type Of Diet Are You Following? REGULAR Information n ot available 04/20/2022 Have You Processed Blood Or Body Fluids From An Ebola Virus Disease Patient Without Appropriate PPE? No Information not available 10/21/2022 Do You Reside In Or Have You Traveled To An Area Where Ebola Virus Transmission Is Active? No Information not available 10/21/2022 What Is The Highest Grade Or Level Of School You Have Completed Or The Highest Degree You Have Received? [id number] Information not available 04/20/2022 Have There Been Any Changes To Your Family Or Social Situation? No Information no t available 04/20/2022 What Is The Fluoride Status Of Your Home? Unknown Information not available 04/20/2022 Have You Recently Or Are You Planning To Travel To An Area With Zika Virus? No Information not available 10/21/2022 Do You Have A Medical Power Of Crtt? No Information not available 04/20/2022 What Was The Date Of Your Most Recent Tobacco Screening? 07/30/2024 Information not available 07/30/2024 What Is Your Current Pack Years? 10-19packyear s Information not available 12/21/2022 What Is Your Relationship Status? Information not available 04/20/2022 Do You Have Smoke And Carbon Monoxide Detectors In Your Home? Yes Information not available 04/20/2022 At What Age Did You Start Smoking Tobacco? 12 Information not available 12/21/2022 How Much Tobacco Do You Smoke? 1 PPD Information not available 01/21/2025 Has Tobacco Cessation Counseling Been Provided? Yes Information not available 10/21/2022 On What Date Was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
--- OUTSIDE RECORDS SUMMARY | 2025-01-31 17:17 | XMS_ITS | Continuity of Care Document ---
[facility] Address [address] [place] [address] Assessment No assessment recorded. Plan of Treatment Reminders Order Date Submit Date Provider Last Modified By Organization Details Last Modified Time Details Appointments SAME Day 2024 03:40P M Ford Prabhakar APRN Not available Not available Not available Nurse Visit 2024 09:00A M NurseNidhi strange Not available Not available Not available Lab Mycobacte rium tuberculo sis stimulate d gamma interfero n, qual, blood 2024 025 [facility], [address], [place], [place], [address], 01/31/2025 16:18:21 CBC w/ auto diff 2024 025 [facility], [address], [place] [address], [place], [address], 01/31/2025 16:18:19 PT/PTT, plasma 2024 025 [facility], [address], [place] [address], [place], [address], 01/31/2025 16:18:20 D-dimer, quant, plasma 2024 025 [facility], [address], [place] [address], [place], [address], 01/31/2025 16:18:19 testoster one, free + total, serum 2024 025 [facility], [address], [place] [address], [place], [address], 01/31/2025 16:18:20 TSH + free T4, serum 2024 025 [facility], [address], [place], [place], [address], 01/31/2025 16:18:20 Referral orthopedi c surgeon referral [address], [address] [place], [place] [address]way [address], [place], [address], 01/31/2025 16:30:15 Procedures None recorded. Surgeries None recorded. Imaging XR, chest, 2 view [address] (X-Ray), [address] [place] [address] [address], [place], [address], 01/31/2025 16:30:15 Medication Orders None recorded. Patient TargetsNo targets recorded. Patient InstructionsNo instructions recorded. Reason for Referral Orthopedic Surgeon Referral for Ganglion cyst of right wrist Referring Physician: Ford Prabhakar, Family Medicine, Encounter Date: 01/31/2025 Results Created Date Observation Date Name Description Value Unit Range Abnormal Flag Note LastModifiedBy Organization Detail LastModifiedTime 01/22/2001/21/2025 drug scree n, urine AMP negati ve Not Available [address], [address], 01/21/2025 13:56:50 01/22/2001/21/2025 drug scree n, urine BAR negati ve Not Available [address], [address], 01/21/2025 13:56:50 01/22/2001/21/2025 drug scree n, urine BUP negati ve Not Available [address], [address], 01/21/2025 13:56:50 01/22/2001/21/2025 drug scree n, urine BZO negati ve Not Available [address], [address], 01/21/2025 13:56:50 01/22/2001/21/2025 drug scree n, urine ELLIOTT negati ve Not Available [address], [address], 01/21/2025 13:56:50 01/22/2001/21/2025 drug scree n, urine FTY negati ve Not Available [address], [address], 01/21/2025 13:56:50 01/22/2001/21/2025 drug scree n, urine MDMA negati ve Not Available [address], [address], 01/21/2025 13:56:50 01/22/2001/21/2025 drug scree n, urine MET negati ve Not Available [address], [address], 01/21/2025 13:56:50 01/22/2001/21/2025 drug scree n, urine MOP negati ve Not Available [address], [address], 01/21/2025 13:56:50 01/22/2001/21/2025 drug scree n, urine MTD negati ve Not Available [facility] [address], [address], 01/21/2025 13:56:50 01/22/2001/21/2025 drug scree n, urine OXY negati ve Not Available [address], [address], 01/21/2025 13:56:50 01/22/2001/21/2025 drug scree n, urine PCP negati ve Not Available [address], [address], 01/21/2025 13:56:50 01/22/2001/21/2025 drug scree n, urine TCA negati ve Not Available [address], [address], 01/21/2025 13:56:50 01/22/2001/21/2025 drug scree n, urine THC negati ve Not Available [address], [address], 01/21/2025 13:56:50 Result Notes None recorded. Problems Name Problem SNOMED Code Status Onset Date Resolution Date Notes Provider Name and Address Organization Details Recorded Time Anxiety 98872366 Active 2022 Ford Prabhakar APRN [address], [place], [address], [place] - [facility] 3 14:45:48 Epigastric pain 84651035 Active 2022 Linus Us, [employer] [address], [place], [address], [place] - [facility] 3 15:34:51 Gastroesophage al reflux disease 583707581 Active 2022 Ford Prabhakar [employer]URE [employer]ESS[employer]KER [address], [place], [address], [place] - [facility] 3 14:45:56 Unintentional weight loss 380340048 Active 2022 [facility] Us, [employer] [address], [place], [address], [place] - [facility] 3 15:44:19 Sleep apnea 57907493 Active 2023 Ford Prabhakar, [employer] [address], [place], [address], [place] - [facility] 4 14:54:05 Problem [...] nued on: 11/21/19 11 11:22AM; User: opal la;Est. Completi on: 06/24/19 11 Not Available Not Available [...] on: 03/14/20 09 2:16PM;D iscontin ued Status: Discaurelianoi nued on: 03/24/20 09 10:22AM; User: [email or web address] [...] route 2 times per day 11/20 completed yamilka mcfaddenne-ami triptyli ne 2-25 mg oral tablet;R ecorded Status: Recorded on: 05/04/19 11 4:48PM;D iscontin ued Status: Disconti nued on: 11/21/19 11 11:22AM; User: Xiomara servin n: Anxiety with Depressi on - ([phone]) Not Available Not Available Not Available lorazepam 1 mg tablet 04/20 completed Not Available Not Available Not Available Ativan 0.5 mg tablet Take 2 tablets 3 times a day by oral route. 07/13 completed Taking an old script at this time Not Available Not Available Not Available methylpre dnisolone 4 mg tablets in a dose pack 04/20 [...] e 50 mcg/actua tion nasal spray,bing pension [place] 1 spray every day by intranas al [...] Cymbalta 30 mg oral capsule, delayed release( /EC);R ecorded Status: Recorded on: 12/24/19 10 4:19PM;D iscontin ued Status: Disconti nued on: 11/21/19 11 11:22AM; User: vikash Not Available Not Available Not Available sildenafi [...] Recorded on: 01/09/20 15 10:04AM; User: opal cliffordEst. Completi on: 02/08/20 15;Indic ation: - (-5) [...] Disconti nued on: 05/04/19 11 4:48PM;U ser: markesbe ryh;Est. Completi on: 06/27/19 11;Indic ation: - (-5) [...] Updated DateTime 5 180.34 cm 31.4 kg/m2 009724. 28 g 97.9 [degF] 18 /min 82 /min 97 % 97 % 136/78 mm[Hg] Annabel Stears [place] - [facility] 5 15:48:35 Social History Question Answer Notes LastModified by Organizat ion Details LastModified Time Tobacco Smoking Status Current Every Day Smoker Marilee white, [place] - [facility] 10/21/2022 15:15:02 Do You [...] Or The Highest Degree You Have Received? [id number] Information not available 04/20/2022 Have There Been Any Changes To Your Family Or Social Situation? No Information no t available 04/20/2022 What Is The Fluoride Status Of Your Home? Unknown Information not available 04/20/2022 Have You Recently Or Are You Planning To Travel To An Area With Zika Virus? No Information not available 10/21/2022 Do You Have A Medical Power Of Community Outreach Manager? No Information not available 04/20/2022 What Was [...] anxious, or unable to sleep at night)? [id number] Information not available 04/20/2022 Do you have [...] ICD10 Code Diagnosis IMO Codes Diagnosis Note [id number] Ford Prabhakar [address] [address] 01/21/2025 13:27:22 01/21/2025 14:08:49 Anxiety 21033480 F41.9 Patient identified triggers for anxiety and impact of anxious thinking on functionin g. Discussed strategies to regulate symptoms and need for compliance with treatment. any issues or concerns return or go to ed asaflak paperwork filled out. Obese class I [id number] 90867 E66.811 Z68.31 9538069 31.4 Long-term current use of drug therapy 537446682 Z79.899 76514675 Hypercholesterolemia 136 02059 E78.00 Gastroesop hageal reflux disease 374174491 K21.9 discussed diet [id number] Ford Prabhakar APRN [address] [address] 01/31/2025 15:38:58 01/31/2025 16:30:15 Anxiety 03299219 F41.9 Patient identified triggers for anxiety and impact of anxious thinking on functionin g. Discussed strategies to regulate symptoms and need for compliance with treatment. any issues or concerns return or go to ed asapflma paperwork filled out. Ganglion c yst of right wrist 1494169162 78857 M67.743 5916100 Hemoptysis 91816624 R04. 2 79766 if worsen or no improvemen t go to ed jo-ann Erectile dysfunction 860 475286 N52.8 5949222 Health Concerns Section Related Observation LastModified by Organization Detai ls LastModified Time None Recorded Concern Status LastModified by Organization Details LastModified Time None Recorded Payers Encounter Date Sequence Insurance Name Policy Number Policy Estrada Covered Member ID Estrada Member ID Guarantor Name 01/31/2025 1 [employer] [id number] Kwan Srivastava [id number] Kwan Srivastava Notes Date Note Type Note Provider Name and Address Organization Details Recorded Time 01/31/2025 text/html ROS as noted in the HPI 44 year old male who presents to the office today for a follow up onanxietyneeds fmla paperwork filled outhas concerns of right wrist pain- cystalso has concerns of Erectile Dysfunctionstates he woke up today coughing and spit up blood in sputum Ford Prabhakar, [employer] [address], [place], [address], [place] - [facility] 01/31/2025 16:18:30
--- OUTSIDE RECORDS SUMMARY | 2025-01-31 17:17 | XMS_ITS | Continuity of Care Document ---
[facility] Address [address] [place] [address] Assessment No assessment recorded. Plan of Treatment Reminders Order Date Submit Date Provider Last Modified By Organization Details Last Modified Time Details Appointments SAME Day 2024 03:40P M Ford Prabhakar APRN Not available Not available Not available Nurse Visit 2024 09:00A M NurseNidhi strange Not available Not available Not available Lab drug screen, urine 2024 [facility], [address] [place] [address], [place], [address], 01/21/2025 14:18:12 Referral None recorded. Procedures None recorded. Surgeries None recorded. Imaging None recorded. Medication Orders pantopraz ole 40 mg tablet,de layed release 2024 025 [facility], [address], [address], 01/21/2025 14:09:54 simvastat in 20 mg tablet 2024 025 [facility], [address], [address], 01/21/2025 14:09:56 clonazepa m 0.5 mg tablet 2024 025 [facility], [address], [address], 01/21/2025 14:09:57 desvenlaf axine succinate ER 50 mg tablet,ex tended release 24 hr 2024 [facility], [address], [address], 01/21/2025 14:09:55 aripipraz ole 5 mg tablet 2024 [facility], [address], [address], 01/21/2025 14:09:54 Patient TargetsNo targets recorded. Patient Instructions Encounter Date Encounter Id Patient Instructions Last Modified By Organization Details Last Modified Time 01/21/2025 [id number] learning about healthy weight efryman Not available 01/21/2025 14:09:47 body mass index: care instructions efryman Not available 01/21/2025 14:09:46 Reason for Referral None Reported. Results Created Date Observation Date Name Description Value Unit Range Abnormal Flag Note LastModifiedBy Organization Detail LastModifiedTime 01/22/2001/21/2025 drug scree n, urine AMP negati ve Not Available [address], [address], 01/21/2025 13:56:50 01/22/2001/21/2025 drug scree n, urine BAR negati ve Not Available [address], [address], 01/21/2025 13:56:50 01/22/2001/21/2025 drug scree n, urine BUP negati ve Not Available [address], [address], 01/21/2025 13:56:50 01/22/20 25 01/21/2025 drug scree n, urine BZO negati ve Not Available [address], [address], 01/21/2025 13:56:50 01/22/2001/21/2025 drug scree n, urine ELLIOTT negati ve Not Available [address], [address], 01/21/2025 13:56:50 01/22/2001/21/2025 drug scree n, urine FTY negati ve Not Available [address], [address], 01/21/2025 13:56:50 01/22/2001/21/2025 drug scree n, urine MDMA negati ve Not Available [address], [address], 01/21/2025 13:56:50 01/22/2001/21/2025 drug scree n, urine MET negati ve Not Available [address], [address], 01/21/2025 13:56:50 01/22/2001/21/2025 drug scree n, urine MOP negati ve Not Available [address], [address], 01/21/2025 13:56:50 01/22/2001/21/2025 drug scree n, urine MTD negati ve Not Available [address], [address], 01/21/2025 13:56:50 01/22/2001/21/2025 drug scree n, urine OXY negati ve Not Available [address], [address], 01/21/2025 13:56:50 01/22/2001/21/2025 drug scree n, urine PCP negati ve Not Available [address], [address], 01/21/2025 13:56:50 01/22/2001/21/2025 drug scree n, urine TCA negati ve Not Available [address], [address], 01/21/2025 13:56:50 01/22/2001/21/2025 drug scree n, urine THC negati ve Not Available [address], [address], 01/21/2025 13:56:50 Result Notes None recorded. Problems Name Problem SNOMED Code Status Onset Date Resolution Date Notes Provider Name and Address Organization Details Recorded Time Anxiety 84085894 Active 2022 Ford Prabhakar [employer] [address], [place], [address], [place] - [facility] 14:45:48 Epigastric pain 72128146 Active 2022 Linus Us APRN [address], [place], [address], [place] - [facility] 15:34:51 Gastroesophage al reflux disease 380083445 Active 2022 Ford Prabhakar [employer] [address], [place], [address], [place] - [facility] 14:45:56 Unintentional weight loss 104338721 Active 2022 Linus Us APRN [address], [place], [address], [place] - [facility] 15:44:19 Sleep apnea 27337253 Active 2023 Ford Prabhakar APRN [address], [place], [address], [place] - [facility] 14:54:05 Problem Notes None recorded. Procedures Surgical History Date Name Laterality Status Provider Name and Address Organization Details Recorded Time Carpal tunnel surgery completed Annabel Garcias [place] - [facility] 05/10/2022 09:57:58 Vasectomy completed [...] on: 11/21/19 11 11:22AM; User: opal la;Est. Bhatia on: 06/24/19 11 Not Available Not [...] Disconti nued on: 11/21/19 11 11:22AM; User: [email or web address] sevrin n: Anxiety with Depressi on - () [...] on: 09/20/19 14 3:17PM;U ser: opal la;Est. Bhatia on: 10/21/19 11 Not Available Not Available Not Available fluticaso ne propionat e 50 mcg/actua tion nasal spray,bing pension Novinger 1 spray every day by intranas al [...] Disconti nued on: 09/20/19 14 3:17PM;U ser: [email or web address] bessie;Est. Completi on: 12/21/19 11;Indic ation: - (-5) [...] Disconti nued on: 05/04/19 11 4:48PM;U ser: [email or web address] ryh;Est. Ciarai on: 06/27/19 11;Indic ation: - (-5) Not [...] and Address Organization Details Last Updated DateTime 180.34 cm 31.4 kg/m2 168916. 28 g 18 /min 78 /min 98 [degF] 97 % 97 % 142/78 mm[Hg] Annabel Stears [place] - [facility] 13:37:43 Social History Question Answer Notes LastModified by [...] Or The Highest Degree You Have Received? [id number] Information not available 04/20/2022 Have There Been Any Changes To Your Family Or Social Situation? No Information no t available 04/20/2022 What Is The Fluoride Status Of Your Home? Unknown Information not available 04/20/2022 Have You Recently Or Are You Planning To Travel To An Area With Zika Virus? No Information not available 10/21/2022 Do You Have A Medical Power Of Fruit Room Hand? No Information not available 04/20/2022 What Was [...] anxious, or unable to sleep at night)? CY1094-7 Information not available 04/20/2022 Do you have [...] ICD10 Code Diagnosis IMO Codes Diagnosis Note [id number] Ford Prabhakar APRN [address] [address] 01/21/2025 13:27:22 01/21/2025 14:08:49 Anxiety 99021712 F41.9 Patient identified triggers for anxiety and impact of anxious thinking on functionin g. Discussed strategies to regulate symptoms and need for compliance with treatment. any issues or concerns return or go to [facility] paperwork filled out. Obese class I [id number] 71178 E66.811 Z68.31 0780998 31.4 Long-term current use of drug therapy 010610442 Z79.899 [id number] Hypercholesterolemia 136 43516 E78.00 Gastroesop hageal reflux disease 140111926 K21.9 discussed diet Health Concerns Section Related Observation LastModified by Organization Detai ls LastModified Time None Recorded Concern Status LastModified by Organization Details LastModified Time None Recorded Payers Encounter Date Sequence Insurance Name Policy Number Policy Estrada Covered Member ID Estrada Member ID Guarantor Name 01/21/2025 1 [employer] [id number] Kwan Srivastava [id number] Kwan Srivastava Notes Date Note Type Note Provider Name and Address Organization Details Recorded Time 01/21/2025 text/html ROS as noted in the [...] medications Ford Prabhakar APRN [address], [place], [address], [place] - [facility] 01/21/2025 14:10:12
--- OUTSIDE RECORDS SUMMARY | 2025-01-31 17:17 | XMS_ITS | Clinical Summary ---
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 Role Phone Unavailable Primary Care Provider Unavailabl e Social History Tobacco Use Types Packs/Day Years Used Date Smoking Tobacco: Never Assessed Comments Unknown Sex and Gender Information Value Date Recorded Sex Assigned at Not on file Legal Sex Female 7:38 AM EDT Gender Identity Not on file Sexual Orientation Not on file Plan of Treatment Health Maintenance Due Date Last Done Comments Annual Wellness Exam 1981 DTaP/TDaP/Td (1 - Tdap) 1997 Hepatitis B Vaccine (1 of 3 - 19+ 3-dose series) 1997 Cologuard 09/29/2023 Colon Cancer Screening 09/29/2023 Colonoscopy 09/29/2023 FIT 09/29/2023 Sigmoidoscopy 09/29/2023 Virtual Colonography 09/29/2023 COVID-19 Vaccine (1 - 2024-2 6 season) 2024 Influenza Vaccine (#1) 2024 Meningococcal B Vaccine Aged Out No l onger eligible based on patient's age to complete this topic Pneumococcal Vaccine 0-49 Aged Out No longer eligible based on patient's age to complete this topic
--- NOTE | 2025-01-31 17:33 | XR_ITS ---
PROCEDURE INFORMATION: Exam: XR Chest Exam date and time: 01/31/2025 5:24 PM Age: 44 years old Clinical indication: Other: Hemoptysis TECHNIQUE: Imaging protocol: Radiologic exam of the chest. Views: 2 views. COMPARISON: CR XR CHEST CHP 1V 10/22/2021 7:27 AM FINDINGS: Lungs: No consolidation. Mild right middle lobe atelectasis and/or scarring. Pleural spaces: No pleural effusion. No pneumothorax. Heart/Mediastinum: No cardiomegaly. Stable small calcified mediastinal lymph nodes. Bones/joints: Unremarkable. IMPRESSION: No acute findings.
== END 2025-01-31 23:59 | disposition home or self-care (01) ==
LOC: RAD 17:16
PROVIDERS: PCP Nurse Practitioner Family; Visit Provider Nurse Practitioner Family
DX: R04.2 Hemoptysis (principal)
CPT/HCPCS: 71046

== ENCOUNTER 2025-02-04 09:11 | Outpatient (CLI) | payer BC, SELFPAY ==
--- NOTE | 2025-02-04 09:11 | XR_ITS ---
FINAL REPORT CLINICAL HISTORY: right wrist pain FINDINGS: RIGHT WRIST Three views demonstrate no acute fracture or dislocation. The visualized joint spaces are normally aligned. The soft tissues are unremarkable. IMPRESSION: No acute bony abnormality. Reviewed, Interpreted and Dictated by Pete Gonzalez MD Transcribed by Hellen Natarajan Authenticated and . [facility]
--- OUTSIDE RECORDS SUMMARY | 2025-02-04 09:24 | XMS_ITS | Clinical Summary ---
Author Organization Healthcare Address [address] [place] [address] Care Team Providers Care Engineering Coordinator Name Role Phone Ebonie Donaldson DDS Unavailable + Allergies No known active allergies Medications albuterol 108 (90 Base) MCG/ACT inhaler inhale 1 puff by mouth every 4 hours as needed 02/17/2024 Active ARIPiprazole (Abilify) 5 MG tablet Take 1 tablet (5 mg) by mouth 1 (one) time each day. 02/18/2024 Active clonazePAM (KlonoPIN) 0.5 MG tablet TAKE 1 TABLET BY MOUTH ONCE DAILY FOR 20 DAYS 12/08/2023 Active desvenlafaxine (Pristiq) 50 MG 24 hr tablet Take 1 tablet (50 mg) by mouth 1 (one) time each day. 02/18/2024 Active pantoprazole (Protonix) 40 MG EC tablet Take 1 tablet (40 mg) by mouth 1 (one) time each day. 02/18/2024 Active simvastatin (Zocor) 20 MG tablet Take 1 tablet (20 mg) by mouth every night. 02/14/2024 Active Social History Tobacco Use Types Packs/Day Years Used Date Smoking Tobacco: Former Cigarettes 2 5 1 04/30/2023 - 03/01/2024 Smokeless Tobacco: Former Snuff Quit: 03/28/2022 Tobacco Cessation:Counseling Given: Not Answered Alcohol Use Standard Drinks/Week Comments Not Currently 0 (1 standard drink = 0.6 oz pur e alcohol) Sex and Gender Information Value Date Recorded Sex Assigned at Not on file Legal Sex Male 1:25 PM EST Gender Identity Not on file Sexual Orientation Not on file Last Filed Vital Signs Vital Sign Reading Time Taken Comments Blood Pressure 123/81 03/08/2024 9:44 AM EST Pulse 84 03/08/2024 9:44 AM EST Temperature 36.6 C (97.9 F) 03/08/2024 9:44 AM EST Respiratory Rate - - Oxygen Saturation 95% 03/08/2024 9:44 AM EST Inhaled Oxygen Concentration - - Weight 109 kg (241 lb 6.4 oz) 03/08/2024 9:44 AM EST Height 182.9 cm (6') 03/08/2024 9:44 AM EST Body Mass Index 32.74 03/08/2024 9:44 AM EST Plan of Treatment Health Maintenance Due Date Last Done Comments Dental Oral Exam 1978 Dental Prophylaxis 1978 Dental X-Ray: Bitewings 1978 Dental X-Ray: Full Mouth 1978 [facility]-Depression Screening 1978 [facility]-HIV Screening 1978 [facility]-Hepatitis C Screening 1978 [facility]-/Child/Adol SDOH Screenings 1978 [facility]- SDOH Screenings 1996 [facility]-Adult SDOH Screenings 1996 [facility]-Hepatitis B Vaccines (1 of 3 - 19+ 3-dose series) 1997 CT Colonography 09/29/2023 Colonoscopy 09/29/2023 FIT-DNA 09/29/2023 FIT 09/29/2023 FOBT 09/29/2023 Sigmoidoscopy 09/29/2023 [facility]-Colorectal Cancer Screening 09/29/2023 [id number] Vaccine (3 - 2024- season) 2024 07/18/2020, 06/17/2020 [facility]-Influenza Vaccine (#1) 2024 [facility]-DTaP,Tdap,and Td Vaccine s (2 - Td or Tdap) 06/16/2025 06/17/2015 [facility]-Zoster Vaccines (1 of 2) 2028 [facility]-Obesity Intervention Completed 03/08/2024 HPV Vaccines Aged Out No longer eligi ble based on patient's age to complete this topic [facility]-HIB Vaccines Aged Out No longer e ligible based on patient's age to complete this topic [facility]-Hepatitis A Vaccines Aged Out No longer eligible based on patient's age to complete this topic [facility]-IPV Vaccines Aged Out No longer e ligible based on patient's age to complete this topic [facility]-Pneumococcal Vaccine: Pediatrics (0 to 5 Years) and At-Risk Patients (6 to 49 Years) Aged Out No longer eligible b ased on patient's age to complete this topic [facility]-Rotavirus Vaccines Aged Out No lo nger eligible based on patient's age to complete this topic Insurance ANTHEM ANTHEM Care Teams Engineering Coordinator Relationship Specialty Start Date End Date Ebonie Donaldson DDS [address] [facility] [address] [place] [address] Dentist Dentist 03/08/24
--- OUTSIDE RECORDS SUMMARY | 2025-02-04 09:24 | XMS_ITS | Data Portability ---
Author Organization [facility] Address [address] [place] [address] Assessment No assessment recorded. Plan of Treatment Reminders Order Date Submit Date Provider Last Modified By Organization Details Last Modified Time Details Appointments None recorded. 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 , qual, blood 2024 025 [facility], [address], [place], [place], [address], 22:06:00 CBC w/ auto diff 2024 025 [place] [facility], [address], [place], [place], [address], 22:05:59 PT/PTT, plasma 2024 025 [facility] [facility], [address], [place], [place], [address], 5 22:05:59 D-dimer, quant, plasma 2024 025 [facility] [facility], [address], [place], [place], [address], 5 22:06:00 testostero ne, free + total, serum 2024 [place] [facility], [address], [place], [place], [address], 22:05:59 TSH + free T4, serum 2024 [place] [facility], [address], [place], [place], [address], 22:05:57 drug screen, urine 2024 [facility], [address] [facility], [place], [address], 14:18:12 drug screen, 14 drugs (detectime d), urine 2024 [place] [facility], [address], [place], [place], [address], 14:14:15 Referral orthopedic surgeon referral 2024 [facility], [address] [place] [address] [address], [place], [address], 10:05:15 Procedures None recorded. Surgeries None recorded. Imaging XR, chest, 2 view 2024 [facility] ([facility]), [address] [place] [address] [address], [place], [address], 18:08:40 Medication Orders pantoprazo le 40 mg tablet,del ayed release 2024 [facility], [address] [place], [address], 14:09:54 simvastati n 20 mg tablet 2024 [facility], [address] [place], [address], 14:09:56 clonazepam 0.5 mg tablet 2024 [facility], [address] [facility] [place], [address], 14:09:57 desvenlafa xine succinate ER 50 mg tablet,ext ended release 24 hr 2024 [facility], [address] [facility] [place], [address], 14:09:55 aripiprazo le 5 mg tablet 2024 [facility], [address] [facility] [place], [address], 14:09:54 clonazepam 0.5 mg tablet 2024 [facility], [address] [facility] [place], [address], 13:49:17 aripiprazo le 5 mg tablet 2024 [facility], [address] [facility] [place], [address], 13:49:16 prednisone 20 mg tablet 2023 024 [facility], [address] [facility] [place], [address], 5 13:15:41 amoxicilli n 500 mg tablet 2023 024 [facility], [address] [place], [address], 13:15:00 Patient TargetsNo targets recorded. Patient Instructions Encounter Date Encounter Id Patient Instructions Last Modified By Organization Details Last Modified Time 01/21/2025 [id number] learning about healthy weight katharina Not available 01/21/2025 14:09:47 body mass index: care instructions efemiliano Not available 01/21/2025 14:09:46 Reason for Referral Orthopedic Surgeon Referral for Ganglion cyst of right wrist Referring Physician: Ford Prabhakar, Family Medicine, Encounter Date: 01/31/2025 Results Created Date Observation Date Name Description Value Unit Range Abnormal Flag Note LastModifiedBy Organization Detail LastModifiedTime 07/31/19 25 08/07/2024 COMPL IANCE DRUG PATRICE [...] paola consu ltati on, pleas e call [phone]. ===== ===== ===== ===== ===== ===== ===== ===== ===== ===== ===== ===== ===== === Not Available [facility] ([facility]) [address] [facility], [place], [address], 08/07/2024 14:14:15 07/31/1908/07/2024 COMPL IANCE DRUG PATRICE SIS, UR pdf . Not Available [facility] ([facility]) [address] [facility], [place], [address], 08/07/2024 14:14:15 01/22/2001/21/2025 drug scree n, urine AMP negati ve Not Available [address], [address], 01/21/2025 13:56:50 01/22/20 25 01/21/2025 drug scree n, urine BAR negati ve Not Available [address], [address], 01/21/2025 13:56:50 01/22/2001/21/2025 drug scree n, urine BUP negati ve Not Available [address], [address], 01/21/2025 13:56:50 01/22/2001/21/2025 drug scree n, urine BZO negati ve Not Available [address], [address], 01/21/2025 13:56:50 01/22/2001/21/2025 drug scree n, urine ELLIOTT negati ve Not Available [address], [address], 01/21/2025 13:56:50 01/22/2001/21/2025 drug scree n, urine FTY negati ve Not Available [address], [address], 01/21/2025 13:56:50 01/22/2001/21/2025 drug scree n, urine MDMA negati ve Not Available [address], [address], 01/21/2025 13:56:50 01/22/2001/21/2025 drug scree n, urine MET negati ve Not Available [address], [address], 01/21/2025 13:56:50 01/22/2001/21/2025 drug scree n, urine MOP negati ve Not Available [address], [address], 01/21/2025 13:56:50 01/22/2001/21/2025 drug scree n, urine MTD negati ve Not Available [address], [address], 01/21/2025 13:56:50 01/22/2001/21/2025 drug scree n, urine OXY negati ve Not Available [address], [address], 01/21/2025 13:56:50 01/22/2001/21/2025 drug scree n, urine PCP negati ve Not Available [address], [address], 01/21/2025 13:56:50 01/22/2001/21/2025 drug scree n, urine TCA negati ve Not Available [address], [address], 01/21/2025 13:56:50 01/22/2001/21/2025 drug scree n, urine THC negati ve Not Available [address], [address], 01/21/2025 13:56:50 02/01/2001/31/2025 XR, chest , 2 view No observ ation record ed. [facility] [address], [place], [address], 02/01/2025 13:18:06 Result Notes None recorded. Problems Name Problem SNOMED Code Status Onset Date Resolution Date Notes Provider Name and Address Organization Details Recorded Time Anxiety 09024394 Active 2022 Ford Prabhakar, [place], [place], [address], [place] - [facility] 14:45:48 Epigastric pain 24182444 Active 2022 Linus Us, [place], [place], [address], [place] - [facility] 3 15:34:51 Gastroesophage al reflux disease 989472322 Active 2022 Ford Prabhakar APRN [address], [place], [address], [place] - [facility] 3 14:45:56 Unintentional weight loss 692210091 Active 2022 Linus Us, [address], [place], [address], [place] - [facility] 3 15:44:19 Sleep apnea 98341380 Active 2023 Ford Prabhakar, [place], [place], [address], [place] - [facility] 4 14:54:05 Problem [...] nued on: 11/21/19 11 11:22AM; User: opal la;EstSherrell Completi on: 06/24/19 11 Not Available Not [...] Disconti nued on: 11/21/19 11 11:22AM; User: vikash;I ndicatiada n: Anxiety with Depressi on - (30006 [...] e 50 mcg/actua tion nasal spray,bing pension [place] 1 spray every day by intranas al [...] nued on: 09/20/19 14 3:17PM;U ser: opal cliffordEstSherrell Completi on: 12/21/19 11;Indic ation: - (-5) Not Available Not Available Not Available Ativan 1 bid 02/07 completed ativan 1 mg;Recor ded Status: Recorded on: 01/09/20 15 10:04AM; User: opal cliffordEstSherrell Completi on: 02/08/20 15;Indic ation: - (-5) Not Available Not Available Not Available Keflex 1 bid 07/22 completed keflex 500mg;Re corded Status: Recorded on: 06/02/19 11 3:14PM;D iscontin ued Status: Disconti nued on: 07/23/19 11 9:01AM;U ser: markesbe ryh;Est. Completi on: 06/16/19 11;Indic ation: - (-5) [...] Organization Details Last Updated DateTime 180.34 cm 32.4 kg/m2 420892. 43 g 78 /min 96 % 96 % 18 /min 0 136/80 mm[Hg] Marilee Leung [place] - [facility] 13:14:44 Date Recorded Body height Body mass index (BMI) Body weight Respiratory rate Heart rate Body temperature Oxygen saturation Oxygen saturation in Arterial blood by Pulse oximetry Systolic And Diastolic Provider Name and Address Organization Details Last Updated DateTime 180.34 cm 31.4 kg/m2 165915. 28 g 18 /min 78 /min 98 [degF] 97 % 97 % 142/78 mm[Hg] Annabel Hawk [place] - [facility] 13:37:43 Date Recorded Body height Body mass index (BMI) Body weight Body temperature Respiratory rate Heart rate Oxygen saturation Oxygen saturation in Arterial blood by Pulse oximetry Systolic And Diastolic Provider Name and Address Organization Details Last Updated DateTime 5 180.34 cm 31.4 kg/m2 913955. 28 g 97.9 [degF] 18 /min 82 /min 97 % 97 % 136/78 mm[Hg] Annabel Hawk [place] - [facility] 5 15:48:35 Date Recorded Body height Provider Name an d Address Organization Details Last Updated DateTime 02/01/2025 180.34 cm Marilee Leung [place] - [facility] 1 04/03/2024 08:46:52 Date Recorded Body height Body mass index (BMI) Body weight Body temperature Heart rate Oxygen saturation Oxygen saturation in Arterial blood by Pulse oximetry Respiratory rate Systolic And Diastolic Provider Name and Address Organization Details Last Updated DateTime 4 180.34 cm 33.1 kg/m2 055841. 39 g 97.8 [degF] 74 /min 96 % 96 % 18 /min 118/76 mm[Hg] Annabel Hawk [place] - [facility] 4 14:10:44 Social History Question Answer Notes LastModified by PrepClass ion Details LastModified Time Tobacco Smoking Status Current Every Day Smoker Marilee Leung [facility] [place] - [facility] 10/21/2022 15:15:02 Do You [...] Or The Highest Degree You Have Received? [id number] Information not available 04/20/2022 Have There Been Any Changes To Your Family Or Social Situation? No Information no t available 04/20/2022 What Is The Fluoride Status Of Your Home? Unknown Information not available 04/20/2022 Have You Recently Or Are You Planning To Travel To An Area With Zika Virus? No Information not available 10/21/2022 Do You Have A Medical Power Of [employer]? No Information not available 04/20/2022 What Was [...] anxious, or unable to sleep at night)? [id number] Information not available 04/20/2022 Do you have [...] or 50 mcg/0.25mL dose 07/18/2020 completed Annabel Hawk null, [place] - [facility] 04/20/2022 18:18:21 Tdap 06/17/2015 completed Annabel white, [place] - [facility] 04/20/2022 18:18:21 COVID-19, mRNA, LNP-S, PF, 100 mcg/0.5mL dose or 50 mcg/0.25mL dose 06/17/2020 completed Annabel white, [place] - [facility] 04/20/2022 18:18:21 Past Encounters Encounter ID Performer Location Encounter Start Date Encounter Closed Date Diagnosis/Indication Diagnosis SNOMED-CT Code Diagnosis ICD10 Code Diagnosis IMO Codes Diagnosis Note [id number] [facility] [address] [place] [address] 01/08/2015 00:00:00 [id number] [facility] [address] [place] [address] 11/07/2009 00:00:00 [id number] [facility] [address] [place] [address] 12/23/2009 00:00:00 [id number] [facility] [address] [place] [address] 12/24/2009 00:00:00 [id number] [facility] [address] [place] [address] 03/25/2010 00:00:00 [id number] [facility] [address] [place] [address] 04/27/2010 00:00:00 [id number] [facility] [address] [place] [address] 06/01/2010 00:00:00 [id number] [facility] [address] [place] [address] 07/22/2010 00:00:00 [id number] [facility] [address] [place] [address] 03/14/2009 00:00:00 [id number] [facility] [address] [place] [address] 08/28/2010 00:00:00 [id number] [facility] [address] [place] [address] 11/20/2010 00:00:00 [id number] [facility] [address] [place] [address] 09/19/2013 00:00:00 [id number] [facility] [address] [place] [address] 01/08/2015 00:00:00 [id number] Ford Prabhakar [address] [address] 04/20/2022 17:55:53 04/22/2022 10:11:39 Pharyngitis 188018110 J02.9 Acute maxi llary sinusitis 48391992 J01.00 [id number] Ford Prabhakar [place] [address] 05/10/2022 09:41:45 05/10/2022 10:19:12 Gastroesophageal reflux disease 932863896 K21.9 discussed diet Right uppe r quadrant pain 264022391 R10.11 [id number] Linus Us [place] [address] 10/21/2022 15:03:31 10/21/2022 15:57:10 Anxiety 30381662 F41.9 Body mass index 30+ - obesity 174602314 Z68.30 Obesity 406890556 E66.9 Gastroesop hageal reflux disease 037565175 K21.9 [id number] Ford Prabhakar [address] [address] 12/21/2022 14:08:19 12/21/2022 14:46:30 Acute bronchitis 63796290 J20.9 Viral uppe r respiratory tract infection 265248398 J06.9 no sign of a bacterial infection. likely viral. viruses can take 7-14 days to run their course.anitha al saline and bulb syringe to remove nasal drainage to help with congestion .monitor temp. Tylenol or Motrin as needed for pain or fever.enco urage fluids, water, Gatorade, power aide, Pedialyte if /tod dler/child warm salt water gargleswar m fluidssore throat lozengessl eep elevatedhu midifier/v aporizerfo llow up immediatel y for new or worsening symptoms or no noticeable improvemen t over the next 48-72 hours Anxiety 75775094 F41.9 Gastroesop hageal reflux disease 104232428 K21.9 discussed diet [id number] Ford Prabhakar [address] [address] 04/12/2023 10:24:46 04/12/2023 10:55:43 Gastroesophageal reflux disease 034232072 K21.9 discussed diet Asthma 184575477 J45.90 9 once improved if still having issues will order pftsencour aged to stop smoking [id number] Ford Prabhakar [address] [address] 07/14/2023 10:33:40 07/14/2023 12:22:40 Anxiety 93848590 F41.9 Patient identified triggers for anxiety and impact of anxious thinking on functionin g. Discussed strategies to regulate symptoms and need for compliance with treatment. will start at low dose Depressive disorder 2098 6215 F32.A will do trial if no improvemen t will do genesight testing Gastroesop hageal reflux disease 505957689 K21.9 discussed diet [id number] Ford Prabhakar [place] [address] [address] 07/28/2023 08:40:15 07/28/2023 09:36:30 Anxiety 90807631 F41.9 Patient identified triggers for anxiety and impact of anxious thinking on functionin g. Discussed strategies to regulate symptoms and need for compliance with treatment. will continue this dose for 4 more weeks if needed then will adjust up [id number] Ford Prabhakar [place] [address] [address] 08/05/2023 07:50:29 08/05/2023 08:25:21 Diarrhea 52502267 R19.7 paperwork completed [id number] Ford Prabhakar [address] [address] 09/13/2023 09:32:11 09/13/2023 10:31:21 Anxiety 56947383 F41.9 Patient identified triggers for anxiety and impact of anxious thinking on functionin g. Discussed strategies to regulate symptoms and need for compliance with treatment. will adjust meds up. any issues or concerns return Gastroesop hageal reflux disease 296503479 K21.9 discussed diet Hypertriglyceridemia 302 609255 E78.1 Impaired f asting glycemia 430647410 R73.01 labs [id number] Ford Prabhakar [address] [address] 11/07/2023 09:16:28 11/07/2023 10:06:43 Anxiety 78925981 F41.9 Patient identified triggers for anxiety and impact of anxious thinking on functionin g. Discussed strategies to regulate symptoms and need for compliance with treatment. will adjust meds up. any issues or concerns return Gastroesop hageal reflux disease 352348089 K21.9 discussed diet Asthma 055861619 J45.90 9 once improved if still having issues will order pftsencour aged to stop smoking [id number] Ford Prabhakar [address] [address] 12/08/2023 14:21:55 12/08/2023 15:05:58 Anxiety 63788597 F41.9 Patient identified triggers for anxiety and impact of anxious thinking on functionin g. Discussed strategies to regulate symptoms and need for compliance with treatment. will adjust meds up. any issues or concerns returnflma paperwork filled out. Gastroesop hageal reflux disease 473752100 K21.9 discussed diet [id number] Ford Prabhakar[address] [address] 03/01/2024 10:09:14 03/09/2024 13:31:53 Acute maxillary sinusitis 23293701 J01.00 if symptoms worsen or no improvemen t return [id number] Elyanni Prabhakar [address] [address] 07/30/2024 13:02:59 07/30/2024 13:39:28 Anxiety 92696928 F41.9 Patient identified triggers for anxiety and impact of anxious thinking on functionin g. Discussed strategies to regulate symptoms and need for compliance with treatment. any issues or concerns return or go to ed asapflma paperwork needs filled out.do not take together Long-term current use of drug therapy 518049010 Z79.899 [id number] [id number] [facility] [address] [address] 01/21/2025 13:27:22 01/21/2025 14:08:49 Anxiety 92289681 F41.9 Patient identified triggers for anxiety and impact of anxious thinking on functionin g. Discussed strategies to regulate symptoms and need for compliance with treatment. any issues or concerns [facility]. Obese class I [id number] 60951 E66.811 Z68.31 2427450 31.4 Long-term current use of drug therapy 676177303 Z79.899 24058832 Hypercholesterolemia 136 39744 E78.00 Gastroesop hageal reflux disease 069553497 K21.9 discussed diet [id number] [facility] [address] 01/31/2025 15:38:58 01/31/2025 16:30:15 Anxiety 17890465 F41.9 Patient identified triggers for anxiety and impact of anxious thinking on functionin g. Discussed strategies to regulate symptoms and need for compliance with treatment. any issues or concerns return or go to ed asapflma paperwork filled out. Ganglion c yst of right wrist 5047073287 78580 M67.269 [id number] Hemoptysis 83310057 R04. 2 17369 if worsen or no improvemen t go to ed jo-ann Erectile dysfunction 860 809663 N52.8 [id number] Ford Prabhakar, [facility] [address] [facility] [place] [address] 02/01/2025 08:37:42 02/01/2025 09:14:12 Hemoptysis 17893434 R04.2 [id number] if worsen or no improvemen t go to ed jo-ann Health Concerns Section Related Observation LastModified by Organization Detai ls LastModified Time None Recorded Concern Status LastModified by Organization Details LastModified Time None Recorded Advance Directives Directive N: Payers Insurance Date Sequence Insurance Name Policy Number Policy Estrada Covered Member ID Estrada Member ID Guarantor Name 04/20/2022 1 *SELF PAY* Jenni Srivastava 01/30/2025 1 [place] ([facility]) [id number] Kwan Srivastava [id number] Kwan Srivastava Notes Date Note Type Note Provider Name and Address Organization Details Recorded Time 02/28/2024 text/html ROS as noted in the HPI 43 year old male who presents to the office today with concerns ofbronchitis, complains with cough and chest congestion. pt states coughing up green/yellow sputum.declines nasal swabs for covid and flu Elyanni AARON jalloh [address], [place], [address], [place] - [facility] 03/09/2024 08:22:54 07/30/2024 text/html ROS [...] to hurt himself and now is in [facility] [place]. pt states with all the stress his anxiety has increased. pt states clonazepam helped in past with his panic attacks. no si or hi Ford Prabhakar [place], [place], [address], [place] - [facility] 07/30/2024 14:06:59 01/21/2025 text/html ROS as noted in the HPI 44 year old male who presents to the office today for a follow up onanxiety. pt states clonazepam works for panic and only takes it as needed when nothing else is working. son still doing chemo and having treatments and test at for brain cafmla formsneeds refills on all medications Ford Prabhakar, [place], [place], [address], [place] - [facility] 01/21/2025 14:10:12 01/31/2025 text/html ROS as noted in the HPI 44 year old male who presents to the office today for a follow up onanxietyneeds fmla paperwork filled outhas concerns of right wrist pain- cystalso has concerns of Erectile Dysfunctionstates he woke up today coughing and spit up blood in sputum Ford Prabhakar, [place], [place], [address], [place] - [facility] 01/31/2025 16:18:30 02/01/2025 text/html 44 yr old male presents for labs. Patient got pale and a little weak during blood draw. Patient was given a coke/drink and cool towel to head. He had not had anything to eat or drink in a while. He felt better after a short time and left in stable condition. Ford notified. Marilee white, [place] - [facility] 02/01/2025 10:06:21
--- OUTSIDE RECORDS SUMMARY | 2025-02-04 09:24 | XMS_ITS | Continuity of Care Document ---
Author Organization [facility] Address [address] [place] [address] Assessment No assessment recorded. Plan of Treatment Reminders Order Date Submit Date Provider Last Modified By Organization Details Last Modified Time Details Appointments None recorded. Lab drug screen, urine 2024 [facility], [address] [place] [address], [address], 14:18:12 Referral None recorded. Procedures None recorded. Surgeries None recorded. Imaging None recorded. Medication Orders pantoprazol e 40 mg tablet,hayden yed release 2024 [facility], [address], [address], 14:09:54 simvastatin 20 mg tablet 2024 [facility], [address], [address], 14:09:56 clonazepam 0.5 mg tablet 2024 [facility], [address], [address], 14:09:57 desvenlafax ine succinate ER 50 mg tablet,exte nded release 24 hr 2024 [facility], [address], [address], 14:09:55 aripiprazol e 5 mg tablet 2024 025 [facility], [address], [address], 14:09:54 Patient TargetsNo targets recorded. Patient Instructions Encounter Date Encounter Id Patient Instructions Last Modified By Organization Details Last Modified Time 01/21/2025 [id number] learning about healthy weight efryman Not available 01/21/2025 14:09:47 body mass index: care instructions efryfort wayne Not available 01/21/2025 14:09:46 Reason for Referral None Reported. Results Created Date Observation Date Name Description Value Unit Range Abnormal Flag Note LastModifiedBy Organization Detail LastModifiedTime 01/22/2001/21/2025 drug scree n, urine AMP negati ve Not Available [address], [address], 01/21/2025 13:56:50 01/22/2001/21/2025 drug scree n, urine BAR negati ve Not Available [address], [address], 01/21/2025 13:56:50 01/22/2001/21/2025 drug scree n, urine BUP negati ve Not Available [address], [address], 01/21/2025 13:56:50 01/22/2001/21/2025 drug scree n, urine BZO negati ve Not Available [address], [address], 01/21/2025 13:56:50 01/22/2001/21/2025 drug scree n, urine ELLIOTT negati ve Not Available [address], [address], 01/21/2025 13:56:50 01/22/2001/21/2025 drug scree n, urine FTY negati ve Not Available [address], [address], 01/21/2025 13:56:50 01/22/2001/21/2025 drug scree n, urine MDMA negati ve Not Available [address], [address], 01/21/2025 13:56:50 01/22/2001/21/2025 drug scree n, urine MET negati ve Not Available [address], [address], 01/21/2025 13:56:50 01/22/2001/21/2025 drug scree n, urine MOP negati ve Not Available [address], [address], 01/21/2025 13:56:50 01/22/2001/21/2025 drug scree n, urine MTD negati ve Not Available [address], [address], 01/21/2025 13:56:50 01/22/2001/21/2025 drug scree n, urine OXY negati ve Not Available [address], [address], 01/21/2025 13:56:50 01/22/2001/21/2025 drug scree n, urine PCP negati ve Not Available [address], [address], 01/21/2025 13:56:50 01/22/2001/21/2025 drug scree n, urine TCA negati ve Not Available [address], [address], 01/21/2025 13:56:50 01/22/2001/21/2025 drug scree n, urine THC negati ve Not Available [address], [place], [address], 01/21/2025 13:56:50 02/01/2001/31/2025 XR, chest , 2 view No observ ation record ed. [facility] [address], [place], [address], 02/01/2025 13:18:06 Result Notes None recorded. Problems Name Problem SNOMED Code Status Onset Date Resolution Date Notes Provider Name and Address Organization Details Recorded Time Anxiety 14510969 Active 2022 Ford Prabhakar APRN [address], [place], [address], [place] - [facility] 3 14:45:48 Epigastric pain 67162961 Active 2022 Linus Us APRN [address], [place], [address], [place] - [facility] 3 15:34:51 Gastroesophage al reflux disease 297430088 Active 2022 Ford Prabhakar APRN [address], [place], [address], [place] [facility] 3 14:45:56 Unintentional weight loss 141511915 Active 2022 Linus Us APRN [address], [place], [address], [place] - [facility] 3 15:44:19 Sleep apnea 03561141 Active 2023 Ford Prabhakar APRN [address], [place], [address], [place] - [facility] 4 14:54:05 Problem [...] on: 11/21/19 11 11:22AM; User: opal la;EstSherrell Bhaita on: 06/24/19 11 Not Available Not Available [...] Disconti nued on: 03/24/20 09 10:22AM; User: [email or web address] Not Available Not Available Not Available amoxicill [...] nued on: 11/21/19 11 11:22AM; User: Xiomara robinstiada n: Anxiety with Depressi on - () [...] e 50 mcg/actua tion nasal spray,bing pension [place] 1 spray every day by intranas al [...] Last Updated DateTime 180.34 cm 31.4 kg/m2 375899. 28 g 18 /min 78 /min 98 [...] Or The Highest Degree You Have Received? [id number] Information not available 04/20/2022 Have There Been Any Changes To Your Family Or Social Situation? No Information no t available 04/20/2022 What Is The Fluoride Status Of Your Home? Unknown Information not available 04/20/2022 Have You Recently Or Are You Planning To Travel To An Area With Zika Virus? No Information not available 10/21/2022 Do You Have A Medical Power Of Projection Camera Operator? No Information not available 04/20/2022 What Was [...] anxious, or unable to sleep at night)? [id number] Information not available 04/20/2022 Do you have [...] or 50 mcg/0.25mL dose 06/17/2020 completed Annabel Hawk null, [place] - [facility] 04/20/2022 18:18:21 Past Encounters Encounter ID Performer Location Encounter Start Date Encounter Closed Date Diagnosis/Indication Diagnosis SNOMED-CT Code Diagnosis ICD10 Code Diagnosis IMO Codes Diagnosis Note [id number] Ford Prabhakar APRN [address] [address] 01/21/2025 13:27:22 01/21/2025 14:08:49 Anxiety 25537459 F41.9 Patient identified triggers for anxiety and impact of anxious thinking on functionin g. Discussed strategies to regulate symptoms and need for compliance with treatment. any issues or concerns [facility]. Obese class I 2974578928 51359 E66.811 Z68.31 3748308 31.4 Long-term current use of drug therapy 684931435 Z79.899 98437267 Hypercholesterolemia 136 51689 E78.00 Gastroesop hageal reflux disease 855764612 K21.9 discussed diet Health Concerns Section Related Observation LastModified by Organization Detai ls LastModified Time None Recorded Concern Status LastModified by Organization Details LastModified Time None Recorded Payers Encounter Date Sequence Insurance Name Policy Number Policy Estrada Covered Member ID Estrada Member ID Guarantor Name 01/21/2025 1 [place] [id number] Kwan Srivastava [id number] Kwan Srivastava Notes Date Note Type Note [...] medications Ford Prabhakar APRN [address], [place], [address], [place] - [facility] 01/21/2025 14:10:12
--- OUTSIDE RECORDS SUMMARY | 2025-02-04 09:24 | XMS_ITS | Clinical Summary ---
Author Organization [facility] Address [facility] [place] [address] Phone Care Team Providers Care Racebook Writer Name Role Phone Unavailable Primary Care Provider [...]
--- OUTSIDE RECORDS SUMMARY | 2025-02-04 09:24 | XMS_ITS | Continuity of Care Document ---
Author Organization [facility] Address [address] [place] [address] Assessment No assessment recorded. Plan of Treatment Reminders Order Date Submit Date Provider Last Modified By Organization Details Last Modified Time Details Appointments None recorded. Lab venipunctur e 2024 025 [facility], [address] , [facility], [place], [address], 11:19:23 Referral None recorded. Procedures None recorded. Surgeries None recorded. Imaging None recorded. Medication Orders None recorded. Patient TargetsNo targets recorded. Patient InstructionsNo instructions recorded. Reason for Referral None Reported. Results Created Date Observation Date Name Description Value Unit Range Abnormal Flag Note LastModifiedBy Organization Detail LastModifiedTime 01/22/2001/21/2025 drug scree n, urine AMP negati ve Not Available [address], [address], 01/21/2025 13:56:50 01/22/2001/21/2025 drug scree n, urine BAR negati ve Not Available [address], [address], 01/21/2025 13:56:50 01/22/2001/21/2025 drug scree n, urine BUP negati ve Not Available [address], [address], 01/21/2025 13:56:50 01/22/2001/21/2025 drug scree n, urine BZO negati ve Not Available [address], [address], 01/21/2025 13:56:50 01/22/2001/21/2025 drug scree n, urine ELLIOTT negati ve Not Available [address], [address], 01/21/2025 13:56:50 01/22/2001/21/2025 drug scree n, urine FTY negati ve Not Available [address], [address], 01/21/2025 13:56:50 01/22/2001/21/2025 drug scree n, urine MDMA negati ve Not Available [address], [address], 01/21/2025 13:56:50 01/22/2001/21/2025 drug scree n, urine MET negati ve Not Available [address], [address], 01/21/2025 13:56:50 01/22/2001/21/2025 drug scree n, urine MOP negati ve Not Available [address], [address], 01/21/2025 13:56:50 01/22/2001/21/2025 drug scree n, urine MTD negati ve Not Available [address], [address], 01/21/2025 13:56:50 01/22/2001/21/2025 drug scree n, urine OXY negati ve Not Available [address], [address], 01/21/2025 13:56:50 01/22/2001/21/2025 drug scree n, urine PCP negati ve Not Available [address], [address], 01/21/2025 13:56:50 01/22/2001/21/2025 drug scree n, urine TCA negati ve Not Available [address], [address], 01/21/2025 13:56:50 01/22/2001/21/2025 drug scree n, urine THC negati ve Not Available [address], [address], 01/21/2025 13:56:50 02/01/2001/31/2025 XR, chest , 2 view No observ ation record ed. [facility] [address], [place], [address], 02/01/2025 13:18:06 Result Notes None recorded. Problems Name Problem SNOMED Code Status Onset Date Resolution Date Notes Provider Name and Address Organization Details Recorded Time Anxiety 79749989 Active 2022 Ford Prabhakar, SUPERVISOR [employer] [address], [place], [address], [place] - [facility] 3 14:45:48 Epigastric pain 84000497 Active 2022 Linus Us, SUPERVISOR [employer] [address], [place], [address], [place] [facility] 3 15:34:51 Gastroesophage al reflux disease 370346390 Active 2022 Ford Prabhakar, SUPERVISOR [employer] [address], [place], [address], [place] - [facility] 3 14:45:56 Unintentional weight loss 820078868 Active 2022 Linus Us, SUPERVISOR [employer] [address], [place], [address], [place] - [facility] 3 15:44:19 Sleep apnea 22393020 Active 2023 Ford Prabhakar, SUPERVISOR [employer] [address], [place], [address], [place] - [facility] 4 14:54:05 Problem [...] route 2 times per day 11/20 completed perptamika zine-ami triptyli ne 2-25 mg oral tablet;R ecorded Status: Recorded on: 05/04/19 11 4:48PM;D iscontin ued Status: Disconti nued on: 11/21/19 11 11:22AM; User: vikash;Juan ndicatio n: Anxiety with Depressi on - () [...] on: 09/20/19 14 3:17PM;U ser: opal la;Est. Ciarai on: 10/21/19 11 Not Available Not Available Not Available fluticaso ne propionat e 50 mcg/actua tion nasal spray,bing pension [place] 1 spray every day by intranas al [...] Not Available Vitals Date Recorded Body height Provider Name an d Address Organization Details Last Updated DateTime 02/01/2025 180.34 cm Marilee Leung [place] - [facility] 1 04/03/2024 08:46:52 Social History Question Answer Notes LastModified by [...] Or The Highest Degree You Have Received? [id number] Information not available 04/20/2022 Have There Been Any Changes To Your Family Or Social Situation? No Information no t available 04/20/2022 What Is The Fluoride Status Of Your Home? Unknown Information not available 04/20/2022 Have You Recently Or Are You Planning To Travel To An Area With Zika Virus? No Information not available 10/21/2022 Do You Have A Medical Power Of Associate Professor Of English? No Information not available 04/20/2022 What Was [...] anxious, or unable to sleep at night)? [id number] Information not available 04/20/2022 Do you have [...] or 50 mcg/0.25mL dose 07/18/2020 completed Annabel white [place] - [facility] 04/20/2022 18:18:21 Tdap 06/17/2015 completed Annabel white, [place] - [facility] 04/20/2022 18:18:21 COVID-19, mRNA, LNP-S, PF, 100 mcg/0.5mL dose or 50 mcg/0.25mL dose 06/17/2020 completed EZRA [place] - [facility] 04/20/2022 18:18:21 Past Encounters Encounter ID Performer Location Encounter Start Date Encounter Closed Date Diagnosis/Indication Diagnosis SNOMED-CT Code Diagnosis ICD10 Code Diagnosis IMO Codes Diagnosis Note [id number] Ford Prabhakar [address] [address] 01/21/2025 13:27:22 01/21/2025 14:08:49 Anxiety 86646318 F41.9 Patient identified triggers for anxiety and impact of anxious thinking on functionin g. Discussed strategies to regulate symptoms and need for compliance with treatment. any issues or concerns return or go to ed [facility]apfl[facility] paperwork filled out. Obese class I [id number] [address]2700 E66.811 Z68.31 3233779 31.4 Long-term current use of drug therapy 849378431 Z79.899 11817594 Hypercholesterolemia 136 42112 E78.00 Gastroesop hageal reflux disease 644964348 K21.9 discussed diet [id number] Ford Prabhakar [address] [address] 01/31/2025 15:38:58 01/31/2025 16:30:15 Anxiety 56477252 F41.9 Patient identified triggers for anxiety and impact of anxious thinking on functionin g. Discussed strategies to regulate symptoms and need for compliance with treatment. any issues or concerns return or go to ed asapflma paperwork filled out. Ganglion c yst of right wrist 4765460608 60951 M67.737 0057401 Hemoptysis 03584988 R04. 2 49248 if worsen or no improvemen t go to ed jo-ann Erectile dysfunction 860 137488 N52.8 1984843 [id number] Ford Prabhakar [address] [address] 02/01/2025 08:37:42 02/01/2025 09:14:12 Hemoptysis 27647653 R04.2 59850779 if worsen or no improvemen t go to ed jo-ann Health Concerns Section Related Observation LastModified by Organization Detai ls LastModified Time None Recorded Concern Status LastModified by Organization Details LastModified Time None Recorded Payers Encounter Date Sequence Insurance Name Policy Number Policy Estrada Covered Member ID Estrada Member ID Guarantor Name 02/01/2025 1 [employer] (PPO) [id number] Kwan Srivastava [id number] Kwan Srivastava Notes Date Note Type Note Provider Name and Address Organization Details Recorded Time 02/01/2025 text/html 44 yr old male presents for labs. Patient got pale and a little weak during blood draw. Patient was given a coke/drink and cool towel to head. He had not had anything to eat or drink in a while. He felt better after a short time and left in stable condition. Eugonda notified. EZRA Magdal[place] - [facility] 02/01/2025 10:06:21
--- OUTSIDE RECORDS SUMMARY | 2025-02-04 09:24 | XMS_ITS | Continuity of Care Document ---
Author Organization [facility] Address [address] [facility] [place] [address] Assessment No assessment recorded. Plan of Treatment Reminders Order Date Submit Date Provider Last Modified By Organization Details Last Modified Time Details Appointments None recorded. Lab Mycobacter ium tuberculos is stimulated gamma interferon , qual, blood 2024 025 [facility], [address], [address], [place], [address], 22:06:00 CBC w/ auto diff 2024 025 [facility], [address], [place] [address], [place], [address], 22:05:59 PT/PTT, plasma 2024 025 [facility], [address], [place] [address], [place], [address], 22:05:59 D-dimer, quant, plasma 2024 025 [facility], [address], [address], [place], [address], 5 22:06:00 testostero ne, free + total, serum 2024 025 [facility], [address], [place] [address], [place], [address], 22:05:59 TSH + free T4, serum 2024 [facility], [address], [address], [place], [address], 22:05:57 Referral orthopedic surgeon referral 2024 [facility], [place], [address], 10:05:15 Procedures None recorded. Surgeries None recorded. Imaging XR, chest, 2 view 2024 [facility] ([facility]), [address] [place] [address] [address], [place], [address], 18:08:40 Medication Orders None recorded. Patient TargetsNo targets recorded. Patient InstructionsNo instructions recorded. Reason for Referral Orthopedic Surgeon Referral for Ganglion cyst of right wrist Referring Physician: Ford Prabhakar, Family Medicine, Encounter Date: 01/31/2025 Results Created Date Observation Date Name Description Value Unit Range Abnormal Flag Note LastModifiedBy Organization Detail LastModifiedTime 01/22/2001/21/2025 drug scree n, urine AMP negati ve Not Available [address], [address], 01/21/2025 13:56:50 01/22/2001/21/2025 drug scree n, urine BAR negati ve Not Available [address], [address], 01/21/2025 13:56:50 01/22/2001/21/2025 drug scree n, urine BUP negati ve Not Available [address], [address], 01/21/2025 13:56:50 01/22/2001/21/2025 drug scree n, urine BZO negati ve Not Available [address], [address], 01/21/2025 13:56:50 01/22/2001/21/2025 drug scree n, urine ELLIOTT negati ve Not Available [address], [address], 01/21/2025 13:56:50 01/22/2001/21/2025 drug scree n, urine FTY negati ve Not Available [address], [address], 01/21/2025 13:56:50 01/22/2001/21/2025 drug scree n, urine MDMA negati ve Not Available [address], [address], 01/21/2025 13:56:50 01/22/2001/21/2025 drug scree n, urine MET negati ve Not Available [address], [address], 01/21/2025 13:56:50 01/22/2001/21/2025 drug scree n, urine MOP negati ve Not Available [address], [address], 01/21/2025 13:56:50 01/22/2001/21/2025 drug scree n, urine MTD negati ve Not Available [address], [address], 01/21/2025 13:56:50 01/22/2001/21/2025 drug scree n, urine OXY negati ve Not Available [address], [address], 01/21/2025 13:56:50 01/22/2001/21/2025 drug scree n, urine PCP negati ve Not Available [address], [address], 01/21/2025 13:56:50 01/22/2001/21/2025 drug scree n, urine TCA negati ve Not Available [address], [address], 01/21/2025 13:56:50 01/22/2001/21/2025 drug scree n, urine THC negati ve Not Available [address], [address], 01/21/2025 13:56:50 02/01/2001/31/2025 XR, chest , 2 view No observ ation record ed. [facility] [address], [place], [address], 02/01/2025 13:18:06 Result Notes None recorded. Problems Name Problem SNOMED Code Status Onset Date Resolution Date Notes Provider Name and Address Organization Details Recorded Time Anxiety 95594501 Active 2022 Ford Prabhakar, AARON [address], [place], [address], [place] - [facility] 3 14:45:48 Epigastric pain 74271452 Active 2022 Linus Us, HOUSING COORDINATOR [address], [place], [address], [place] [facility] 3 15:34:51 Gastroesophage al reflux disease 865905041 Active 2022 Ford Prabhakar APRN [address], [place], [address], [place] - [facility] 3 14:45:56 Unintentional weight loss 592776370 Active 2022 Linus Us, HOUSING COORDINATOR [address], [place], [address], [place] - [facility] 3 15:44:19 Sleep apnea 25590525 Active 2023 Ford Prabhakar, HOUSING COORDINATOR [address], [place], [address], [place] - [facility] 4 14:54:05 Problem [...] e 50 mcg/actua tion nasal spray,bing pension [place] 1 spray every day by intranas al [...] Updated DateTime 5 180.34 cm 31.4 kg/m2 027083. 28 g 97.9 [degF] 18 /min 82 [...] Or The Highest Degree You Have Received? [id number] Information not available 04/20/2022 Have There Been Any Changes To Your Family Or Social Situation? No Information no t available 04/20/2022 What Is The Fluoride Status Of Your Home? Unknown Information not available 04/20/2022 Have You Recently Or Are You Planning To Travel To An Area With Zika Virus? No Information not available 10/21/2022 Do You Have A Medical Power Of Boilermaker Pipe Fitter? No Information not available 04/20/2022 What Was [...] anxious, or unable to sleep at night)? [id number] Information not available 04/20/2022 Do you have [...] Vaccine Type Date Status Note Provider Nam abrahan and Address Organization Details Recorded Time COVID-19, [...] ICD10 Code Diagnosis IMO Codes Diagnosis Note [id number] Ford Prabhakar [address] [address] 01/21/2025 13:27:22 01/21/2025 14:08:49 Anxiety 96940986 F41.9 Patient identified triggers for anxiety and impact of anxious thinking on functionin g. Discussed strategies to regulate symptoms and need for compliance with treatment. any issues or concerns return or go to ed asaflid paperwork filled out. Obese class I [id number] 50606 E66.811 Z68.31 1824697 31.4 Long-term current use of drug therapy 512267875 Z79.899 49264400 Hypercholesterolemia 136 86698 E78.00 Gastroesop hageal reflux disease 171018499 K21.9 discussed diet [id number] Ford Prabhakar APRN [address] [address] 01/31/2025 15:38:58 01/31/2025 16:30:15 Anxiety 17253347 F41.9 Patient identified triggers for anxiety and impact of anxious thinking on functionin g. Discussed strategies to regulate symptoms and need for compliance with treatment. any issues or concerns return or go to ed asapflma paperwork filled out. Ganglion c yst of right wrist 8111970195 16640 M67.479 0619922 Hemoptysis 85126574 R04. 2 03746 if worsen or no improvemen t go to ed jo-ann Erectile dysfunction 860 218285 N52.8 1179383 Health Concerns Section Related Observation LastModified by Organization Detai ls LastModified Time None Recorded Concern Status LastModified by Organization Details LastModified Time None Recorded Payers Encounter Date Sequence Insurance Name Policy Number Policy Estrada Covered Member ID Estrada Member ID Guarantor Name 01/31/2025 1 [place]) [id number] Kwan Srivastava [id number] Kwan Srivastava Notes Date Note Type Note [...] spit up blood in sputum Ford Prabhakar, HOUSING COORDINATOR [address], [place], [address], [place] - [facility] 01/31/2025 16:18:30
--- OUTSIDE RECORDS SUMMARY | 2025-02-04 09:24 | XMS_ITS | Encounter Summary ---
Author Organization Healthcare Address [address] [place] [address] Care Team Providers Care Perpetual Inventory Clerk Name Role Phone Ebonie Donaldson DDS Unavailable + Reason for Referral * Consultation (Routine) - Closed Specialty Diagnoses / Procedures Referred By Contac t Referred To Contact Dentist / Pain Medicine Diagnoses Obstructive sleep apnea (adult) (pediatric) Shania Nicole MD [address] [facility] [address] [place] [address] Phone: tel: fax: Ebonie Donaldson, DDS [address] [facility] [address] [place] [address] Phone: tel: fax: Referral ID Status Reason Start Date Expiration Date Visits Re quested Visits Authorized [id number] Closed 02/09/2024 08/10/2025 1 1 Encounter Details Date Type Department Care Team (Late st Contact Info) Description 02/09/2024 [facility] [address] [place] [address] Shania Nicole MD [address] [facility] [address] [place] [address] Obstructive sleep apnea (adult) (pediatric) (Primary Dx) Social History Tobacco Use Types Packs/Day Years Used Date Smoking Tobacco: Never Assessed Sex and Gender Information Value Date Recorded Sex Assigned at Not on file Legal Sex Male 1:25 PM EST Gender Identity Not on file Sexual Orientation Not on file documented as of this encounter Plan of Treatment Scheduled Referrals Name Type Priority Associated Diagnoses Order Schedule Ambulatory Referral to Orofacial Pain Outpatient Referral Routine Obstructive sleep apnea (adult) (pediatric) Expected: 02/09/2024 (Approximate), Expires: 08/08/2025 documented as of this encounter Visit Diagnoses Diagnosis Obstructive sleep apnea (adult) (pediatric)- Primary documented in this encounter Care Teams Perpetual Inventory Clerk Relationship Specialty Start Date End Date Ebonie Donaldson, FUNMILAYO [id number] [place] [address] Dentist Dentist 03/08/24 documented as of this encounter
== END 2025-02-04 23:59 | disposition home or self-care (01) ==
LOC: RAD 09:11
PROVIDERS: PCP Nurse Practitioner Family; Visit Provider Physician Assistant
DX: M25.531 Pain in right wrist (principal)
CPT/HCPCS: 73110

== ENCOUNTER 2025-02-08 16:22 | Outpatient (CLI) | payer BC, SELFPAY ==
--- NOTE | 2025-02-08 16:15 | MR_ITS ---
PROCEDURE INFORMATION: Exam: MR Right Upper Extremity Joint Without Contrast; Wrist Exam date and time: 02/08/2025 4:25 PM Age: 44 years old Clinical indication: Pain; Wrist; Right; Additional info: Right wrist pain, lateral / thumb side, nki TECHNIQUE: Imaging protocol: Magnetic resonance imaging of the right upper extremity without contrast. Exam focused on the wrist. COMPARISON: CR XR WRIST RT MIN 3V 02/04/2025 9:16 AM FINDINGS: Bones/joints: See Triangular fibrocartilage complex finding. Scapholunate ligament: Unremarkable. No tear. Lunotriquetral ligament: Unremarkable. No tear. Triangular fibrocartilage complex: There is a nonarticular tear of the triangular fibrocartilage, image 16/11. There is no fluid within the triangular fibrocartilage. There is a minimal amount of fluid within the drug. Flexor compartment tendons: Unremarkable. No tear. Extensor compartment tendons: Unremarkable. No tear. Soft tissues: Unremarkable. Other findings: The visible skeletal structures are unremarkable. IMPRESSION: Nonarticular tear of the triangular fibrocartilage as described.
== END 2025-02-08 23:59 | disposition home or self-care (01) ==
PROVIDERS: PCP Nurse Practitioner Family; Visit Provider Physician Assistant
DX: S63.591A Other specified sprain of right wrist, initial encounter (principal); M67.431 Ganglion, right wrist
CPT/HCPCS: 73221

== ENCOUNTER 2025-02-18 11:31 | Outpatient (CLI) | payer BC, SELFPAY ==
[2025-02-18 11:49] LABS: Hematocrit 50.0 % (42.0-52.0); Hemoglobin 17.4 g/dL (14.1-18.0); Immature Granulocytes % 0.3 %; Mean Corpuscular HGB Conc 34.8 g/dL (31.8-35.4); Mean Corpuscular Hemoglobin 31.8 pg (27.0-31.2); Mean Corpuscular Volume 91.2 fl (80-94); Nucleated Red Blood Cells % 0 %; Platelet Count 236 K/mm3 (142-424); Red Blood Count 5.48 M/mm3 (4.60-6.20); Red Cell Distribution Width-SD 47.2 fL; White Blood Count 11.2 K/mm3 (4.8-10.8)
--- OUTSIDE RECORDS SUMMARY | 2025-02-18 11:52 | XMS_ITS ---
Author Organization Unknown ENCOUNTERS Encounter Performer Location Date Diagnosis Diagnosis Status Emergency Amelie Abreu [address] [place] [address] [id number] [facility] Pre Admit [address] [place] [address] [id number] Emergency [address] [place] [address] [id number] [facility] Emergency [address] [place] [address] [id number] [facility] *Note: Encounters from your own facility or health system may be excluded. Allergies, Adverse Reactions, Alerts Allergen Type Severity Identification Date Medications Name Date Quantity Days Supplied GPI Number
--- OUTSIDE RECORDS SUMMARY | 2025-02-18 11:53 | XMS_ITS | Encounter Summary ---
Author Organization Healthcare Address [address] [place] [address] Care Team Providers Care Keg Header Name Role Phone Ebonie Donaldson DDS Unavailable + Reason for Referral * Consultation (Routine) - Closed Specialty Diagnoses / Procedures Referred By Contac t Referred To Contact Dentist / Pain Medicine Diagnoses Obstructive sleep apnea (adult) (pediatric) Shania Nicole MD [address] [facility] [address] [place] [address] Phone: tel: fax: Ebonie Donaldson, DDS [address] [facility] [address] [place] [address] Phone: tel: fax: Referral ID Status Reason Start Date Expiration Date Visits Re quested Visits Authorized [id number] Closed 02/09/2024 08/10/2025 1 1 Encounter Details Date Type Department Care Team (Late st Contact Info) Description 02/09/2024 Community [facility] Community Practice [address] [place] [address] Shania Nicole MD [address] [facility] [address] [place] [address] Obstructive sleep apnea (adult) (pediatric) [...] Primary documented in this encounter Care Teams Keg Header Relationship Specialty Start Date End Date Ebonie Donaldson, FUNMILAYO [id number] [place] [address] Dentist Dentist 03/08/24 documented as of this encounter
--- OUTSIDE RECORDS SUMMARY | 2025-02-18 11:53 | XMS_ITS | Clinical Summary ---
Author Organization [facility] Address [facility] [place] [address] Phone Care Team Providers Care Fresh Food Manager Name Role Phone Unavailable Primary Care Provider [...]
--- OUTSIDE RECORDS SUMMARY | 2025-02-18 11:53 | XMS_ITS | Clinical Summary ---
Author Organization Healthcare Address [address] [place] [address] Care Team Providers Care Cover Marker Name Role Phone Ebonie Donaldson DDS Unavailable [...] 09/29/2023 Sigmoidoscopy 09/29/2023 [facility]-Colorectal Cancer Screening 09/29/2023 [id number] Vaccine (3 - 2024- season) 2024 07/18/2020, [...] this topic Insurance ANTHEM ANTHEM Care Teams Cover Marker Relationship Specialty Start Date End Date Ebonie Donaldson DDS [address] [facility] [address] [place] [address] Dentist Dentist 03/08/24
[2025-02-19 08:13] LABS: FSH 4.7 mIU/mL (1.5-12.4); LH 6.2 mIU/mL (1.7-8.6); Testosterone,Total 404 ng/dL (264-916)
== END 2025-02-18 23:59 | disposition home or self-care (01) ==
LOC: LAB 11:31
PROVIDERS: PCP Nurse Practitioner Family; Visit Provider Urology
DX: N52.9 Male erectile dysfunction, unspecified (principal); D75.1 Secondary polycythemia; R53.83 Other fatigue
CPT/HCPCS: 36415; 82627; 82670; 83001; 83002; 84146; 84270; 84403; 85025

== ENCOUNTER 2025-02-18 11:51 | Outpatient (RCR) | payer BC, SELFPAY | END 2025-02-18 23:59 | disposition home or self-care (01) | LOC: OT 11:51 | PROVIDERS: PCP Nurse Practitioner Family; Visit Provider Physician Assistant | DX: M65.931 Unspecified synovitis and tenosynovitis, right forearm (principal) | CPT/HCPCS: 97760 ==